=== PATIENT | female | born 1950 | race Caucasian/White ===

== ENCOUNTER → 2021-03-03 13:22 | Outpatient (CLI) | payer MEDICARE, OTHER, SELFPAY ==
--- NOTE | 2021-03-03 13:35 | XR_ITS ---
PROCEDURE: XR KNEE RT 3V CLINICAL INDICATION: Unilateral primary osteoarthritis, right knee COMPARISON: No exams were available for comparison FINDINGS: No fracture or dislocation. No lytic or blastic change. There is normal mineralization. [id number] osteoarthritic changes are present involving the right knee most prominent at the patellofemoral joint also involving the medial lateral compartment. No fracture or dislocation. No lytic or blastic change. Other findings:None. IMPRESSION: Mild to moderate osteoarthritic change Dictated by: Kenn Rodriguez MD 03/03/2021 14:21 Kenn Rodriguez MD in [place] 03/03/2021 14:21
== END ==
PROVIDERS: PCP Family Medicine; Visit Provider Family Medicine
DX: M17.11 Unilateral primary osteoarthritis, right knee (principal)
CPT/HCPCS: 73562

== ENCOUNTER → 2022-08-15 10:14 | Outpatient (CLI) | payer MEDICARE, OTHER, SELFPAY ==
[2022-08-15 12:03] LABS: Alanine Aminotransferase 39 U/L (12-78); Albumin Level 4.2 g/dl (3.5-5.0); Albumin/Globulin Ratio 1.3 (1.1-1.8); Alkaline Phosphatase 92 U/L (38-126); Anion Gap 4.9 mEq/L (5-15); Aspartate Amino Transferase 62 U/L (14-36); Bilirubin,Total 0.6 mg/dl (0.2-1.3); Blood Urea Nitrogen 18 mg/dl (7-17); Calcium 9.8 mg/dl (8.4-10.2); Carbon Dioxide 32 mmol/L (22.0-30.0); Chloride 102 mmol/L (98-107); Cholesterol 245 mg/dl (140-200); Estimated Glomerular Filt Rate 49 ml/min (>60); GFR (African American) 59 ML/MIN (>60); Globulin 3.2 g/dL (1.3-3.2); Glucose 124 mg/dl (74-100); HDL Cholesterol 62 mg/dl (40-60); Potassium 3.9 mmoL/L (3.5-5.1); Sodium 135 mmol/L (136-145); Total Protein,Serum 7.4 g/dl (6.3-8.2); Triglycerides 208 mg/dl (30-150); Uric Acid 6.1 mg/dl (2.5-6.2); VLDL Cholesterol 42 mg/dL (0-40)
[2022-08-15 12:19] LABS: 25-OH Vitamin D, Total 86.4 ng/mL (30-100)
[2022-08-15 12:34] LABS: Thyroid Stimulating Hormone 5.37 uIU/mL (0.465-4.68)
== END ==
PROVIDERS: PCP Family Medicine; Visit Provider Family Medicine
DX: E03.9 Hypothyroidism, unspecified (principal); E78.5 Hyperlipidemia, unspecified; E55.9 Vitamin D deficiency, unspecified; E79.0 Hyperuricemia without signs of inflammatory arthritis and tophaceous disease; I10 Essential (primary) hypertension
CPT/HCPCS: 36415; 80053; 80061; 82306; 84443; 84550

== ENCOUNTER 2023-06-07 12:29 | Emergency (ER) | payer MEDICARE, OTHER, SELFPAY ==
[2023-06-07 13:25] VITALS: BP 143/72; PULSE 87; RESP 20; TEMP 36.7; O2SAT 95; BMI 39.4
--- NOTE | 2023-06-07 13:45 | EXP.UTC ---
Discharge Plan Disposition Patient Disposition: Home, Self-Care Condition: Good Prescriptions Prescriptions: New Paxlovid 300 mg (150 mg x 2)-100 mg tablets,dose pack See Rx Instructions .ROUTE .COMPLEX Qty: 30 0RF Rx Instructions: take TWO 150 mg tablets of nirmatrelvir with ONE 100 mg tablet of ritonavir twice daily for 5 days benzonatate [benzonatate] 100 mg capsule 100 mg PO TIDP PRN (Reason: Cough) Qty: 30 0RF ondansetron 4 mg Tablet,Disintegrating 4 mg PO Q8H PRN (Reason: Nausea) Qty: 12 0RF No Action metoprolol succinate 25 mg tablet extended release 24 hr 25 mg PO DAILY Qty: 90 2RF ramipril 10 mg capsule 10 mg PO DAILY Qty: 90 2RF allopurinol 100 mg tablet 100 mg PO DAILY levothyroxine 25 mcg tablet 25 mcg PO DAILY Patient Comments: TAKE 1 TABLET BY MOUTH EVERY DAY FOR 90 DAYS triamterene-hydrochlorothiazid 37.5-25 mg tablet 1 tab PO DAILY raloxifene 60 mg tablet 60 mg PO DAILY metoprolol succinate 25 mg tablet extended release 24 hr 25 mg PO DAILY Patient Comments: TAKE 1 TABLET BY MOUTH EVERY DAY ramipril 10 mg capsule 10 mg PO DAILY Patient Comments: TAKE 1 CAPSULE BY MOUTH EVERY DAY Referrals Follow up/Referrals: Polo Chapin MD [Primary Care Provider] - See instructions Activity Restrictions/Add. Instructions Additional Instructions/Restrictions: Drink plenty of fluids. Take tylenol or ibuprofen for pain or fever. Take the medications as directed. Follow up with your regular doctor. GO TO THE ER FOR ANY WORSENING SYMPTOMS Clinical Impressions Clinical Impression: Acute viral syndrome, Exposure to 2019 novel coronavirus Instructions Patient Instructions: Coronavirus Disease 2019, Preventing the Spread of Coronavirus Discharge Instructions Discharge ED Provider: Wilmar Mcdonough [facility] General Stated complaint: headache,sore throat,wants Covid test Mode of Arrival: Ambulatory Source of Information: Patient Limitations: No Limitations Time Seen by Provider: 06/07/23 13:45 Description of Symptoms (Recalled from Triage Doc. by RN): PATIENT C/O CHILLS, HEADACHE AND BODY ACHES. RECENTLY EXPOSED TO COVID HEENT Symptoms (Recalled from RN notes): Yes Resp Symptoms (Recalled from RN notes): No Skin Symptoms (Recalled from RN notes): No MS Symptoms (Recalled from RN notes): No Functional Status (Recalled from RN notes): WNL History of Present Illness Provider Complaint: She states that for the past 1 day she has had malaise, body aches, chills and fever. Her currently has covid-19. Related Data Home Medications Medication Instructions Recorded Confirmed allopurinol 100 mg tablet 100 mg PO DAILY 06/07/23 06/07/23 levothyroxine 25 mcg tablet 25 mcg PO DAILY 06/07/23 06/07/23 metoprolol succinate 25 mg 25 mg PO DAILY 06/07/23 06/07/23 tablet,extended release 24 hr raloxifene 60 mg tablet 60 mg PO DAILY 06/07/23 06/07/23 ramipril 10 mg capsule 10 mg PO DAILY 06/07/23 06/07/23 triamterene 37.5 1 tab PO DAILY 06/07/23 06/07/23 mg-hydrochlorothiazide 25 mg tablet Previous Rx's Medication Instructions Recorded metoprolol succinate 25 mg 25 mg PO DAILY #90 tabs 01/12/23 tablet,extended release 24 hr ramipril 10 mg capsule 10 mg PO DAILY #90 caps 01/12/23 benzonatate 100 mg capsule 100 mg PO TIDP PRN Cough #30 caps 06/07/23 nirmatrelvir 300 mg (150 mg See Rx Instructions PO .COMPLEX 06/07/23 x2)-ritonavir 100 mg tablet,dose #30 tabs pack (Paxlovid) ondansetron 4 mg disintegrating 4 mg PO Q8H PRN Nausea #12 tabs 06/07/23 tablet Allergies Allergy/AdvReac Type Severity Reaction Status Date / Time Levofloxacin Allergy Unknown Uncoded 04/24/22 12:05 Worker's Comp Is this a Worker's Comp case?: No [facility] Disclaimer: The information contained in this section may have been updated after the patient was seen, as this information can be updated by other
[2023-06-07 13:58] VITALS: BP 143/72; PULSE 87; RESP 20; TEMP 36.7; O2SAT 95
== END 2023-06-07 14:00 | disposition home or self-care (01) ==
PROVIDERS: Emergency Provider Nurse Practitioner Family; PCP Family Medicine
DX: U07.1 COVID-19 (principal); R51.9 Headache, unspecified; R50.9 Fever, unspecified; R07.0 Pain in throat; R53.81 Other malaise; M79.18 Myalgia, other site; I10 Essential (primary) hypertension; J30.2 Other seasonal allergic rhinitis; Z87.891 Personal history of nicotine dependence
CPT/HCPCS: 87635; 99204; 99212; G0463

== ENCOUNTER 2023-08-24 13:24 | Outpatient (CLI) | payer MEDICARE, OTHER, SELFPAY ==
[2023-08-24 14:47] LABS: Alanine Aminotransferase 36 U/L (12-78); Albumin Level 4.3 g/dl (3.5-5.0); Albumin/Globulin Ratio 1.4 (1.1-1.8); Alkaline Phosphatase 83 U/L (38-126); Aspartate Amino Transferase 53 U/L (14-36); Bilirubin,Total 0.5 mg/dl (0.2-1.3); Blood Urea Nitrogen 28 mg/dl (7-17); Calcium 10.1 mg/dl (8.4-10.2); Carbon Dioxide 27 mmol/L (22.0-30.0); Chloride 101 mmol/L (98-107); Chol/HDL Ratio 4.1 (1-3.5); Cholesterol 252 mg/dl (140-200); Estimated Glomerular Filt Rate 49 ml/min (>60); GFR (African American) 59 ML/MIN (>60); Globulin 3.1 g/dL (1.3-3.2); Glucose 101 mg/dl (74-100); HDL Cholesterol 61 mg/dl (40-60); Sodium 138 mmol/L (136-145); Total Protein,Serum 7.4 g/dl (6.3-8.2); Triglycerides 206 mg/dl (30-150); VLDL Cholesterol 41 mg/dL (0-40)
[2023-08-24 15:05] LABS: Hemoglobin A1C 6.4 % (4.0-6.0)
[2023-08-24 15:18] LABS: Thyroid Stimulating Hormone 2.68 uIU/mL (0.465-4.68)
== END 2023-08-24 23:59 ==
PROVIDERS: PCP Family Medicine; Visit Provider Family Medicine
DX: E11.9 Type 2 diabetes mellitus without complications (principal); E78.5 Hyperlipidemia, unspecified; E03.9 Hypothyroidism, unspecified
CPT/HCPCS: 36415; 80053; 80061; 83036; 84443

== ENCOUNTER 2024-07-08 14:50 | Outpatient (CLI) | payer MEDICARE, OTHER, SELFPAY ==
[2024-07-08 15:43] LABS: Basophils # 0.1 K/mm3 (0-0.2); Basophils % 0.5 % (0.1-2.0); Eosinophils # 0.3 K/mm3 (0.0-0.4); Eosinophils % 2.5 % (0.1-12.0); Hematocrit 40.7 % (37.0-47.0); Lymphocytes # 4.7 K/mm3 (0.7-4.5); Lymphocytes % 42.3 % (10-50); Mean Corpuscular HGB Conc 31.9 g/dL (31.8-35.4); Mean Corpuscular Hemoglobin 29.9 pg (27.0-31.2); Mean Corpuscular Volume 93.6 fl (81-99); Mean Platelet Volume 10.2 fl (7.4-10.4); Monocytes # 0.7 K/mm3 (0.1-1.0); Monocytes % 6.1 % (1.7-9.3); Neutrophils # 5.3 K/mm3 (1.8-7.8); Neutrophils % 48.1 % (37.0-80.0); Platelet Count 258 K/mm3 (142-424); Red Blood Count 4.35 M/mm3 (4.20-5.40); Red Cell Distribution Width 12.5 % (11.5-17.5)
[2024-07-08 16:07] LABS: Alanine Aminotransferase 24 U/L (12-78); Albumin Level 4.1 g/dl (3.5-5.0); Albumin/Globulin Ratio 1.4 (1.1-1.8); Alkaline Phosphatase 95 U/L (38-126); Anion Gap 12.3 mEq/L (5-15); Aspartate Amino Transferase 35 U/L (14-36); Bilirubin,Total 0.2 mg/dl (0.2-1.3); Blood Urea Nitrogen 22 mg/dl (7-17); Calcium 10.2 mg/dl (8.4-10.2); Carbon Dioxide 29 mmol/L (22.0-30.0); Chloride 104 mmol/L (98-107); Creatine Kinase 41 U/L (30-135); Estimated Glomerular Filt Rate 54 ml/min (>60); GFR (African American) 66 ML/MIN (>60); Globulin 2.9 g/dL (1.3-3.2); Glucose 90 mg/dl (74-100); Potassium 4.3 mmoL/L (3.5-5.1); Sodium 141 mmol/L (136-145)
[2024-07-08 16:41] LABS: Ferritin 123 ng/ml (11.1-264)
[2024-07-08 17:13] LABS: Vitamin B12 582 pg/mL (239-931)
[2024-07-08 17:32] LABS: Folate > 20.00 ng/mL
[2024-07-09 14:16] LABS: Albumin 3.4 g/dL (2.9-4.4); Aldolase 4.4 U/L (3.3-10.3); Alpha-1-Globulin 0.3 g/dL (0.0-0.4); Alpha-2-Globulin 0.9 g/dL (0.4-1.0); Gamma Globulin 1.3 g/dL (0.4-1.8); Protein, Total 7.2 g/dL (6.0-8.5)
[2024-07-09 15:17] LABS: Antinuclear Antibodies (ANA) Negative (Negative)
[2024-07-10 09:42] LABS: PDF SCANNED IMAGE
== END 2024-07-08 23:59 | disposition home or self-care (01) ==
LOC: LAB 14:52
PROVIDERS: PCP Family Medicine; Visit Provider Specialist
DX: E83.10 Disorder of iron metabolism, unspecified (principal); R53.1 Weakness; E78.5 Hyperlipidemia, unspecified; I10 Essential (primary) hypertension; E79.0 Hyperuricemia without signs of inflammatory arthritis and tophaceous disease; R20.0 Anesthesia of skin; R20.2 Paresthesia of skin
CPT/HCPCS: 36415; 80053; 82085; 82550; 82607; 82728; 82746; 84155; 84165; 85025; 86038; 86334

== ENCOUNTER 2024-11-19 13:34 | Outpatient (CLI) | payer MEDICARE, OTHER, SELFPAY ==
--- NOTE | 2024-11-19 | CA_ITS ---
APPROVED REPORT EXAM: Comprehensive 2D, Doppler, and color-flow Echocardiogram Shuttle Bus Driver: Yanci Montalvo RT(R) Ht: 5 ft 4 in Wt: 225lbs BSA: 2.06 BP: 136/78 mmHg Indications: aortic murmur 2D Dimensions LA Volume 16.80 mL LA Volume Index 8.16 mL/m2 (M/F) 16-34 EF AP4 56.70 % GL Strain -19.5 % M-Mode Dimensions RVDd 2.88 cm (0.9-2.6) LA Diam 2.59 cm (1.9-4.0) LVDd 3.94 cm (3.5-5.7) LVDs 2.95 cm (3.5-5.7) IVSd 1.02 cm (0.6-1.1) PWd 1.02 cm (0.6-1.1) EF (Teich) 50.20% FS 25.10% EDV (Teich) 67.50 mL ESV (Teich) 33.60 mL LV Diastology E Decel Time 177 (160-240 msec) E/A Ratio 0.8 Aortic Valve DONTE Index 0.51 cm2/m2 AoV Peak Louie. 254.0 (50-130 cm/s) AO Peak GR. 25.90 mmHg AO Mean GR. 12.80 (<5 mmHg) AO VTI 56.8 (18-25 cm) DONTE (VTI) 1.07 (2.5-4.5 cm2) Mitral Valve MV E Max Louie. 74.0 (40-130 cm/s) MV A Velocity 93.0 (40-130 cm/s) E/A Ratio 0.79 MV PHT 52.0 ms Left Ventricle The left ventricle is normal size. The left ventricular systolic function is normal. The left ventricular ejection fraction is within the normal range. There is increased LV wall thickness. There is normal LV segmental wall motion. Transmitral Doppler flow pattern suggests impaired LV relaxation. LVEF is 55%. Right Ventricle Right ventricle is mildly dilated. The right ventricular systolic function is normal. Atria The left atrium size is normal. The right atrium size is normal. There is no Doppler evidence of interatrial shunt. Aortic Valve The aortic valve is mildly thickened. Mild to moderate aortic stenosis is present. DONTE by continuity equation is 1.5 cm???. Peak velocity is 2.5 m/s. Mean AV gradient 13 mmHg. Max AV gradient is 26 mmHg. Trace aortic regurgitation. Mitral Valve The mitral valve is normal in structure. No evidence of mitral valve stenosis. Mild mitral regurgitation. Tricuspid Valve Tricuspid valve is grossly normal in structure and function. Trace tricuspid regurgitation. There is insufficient TR jet to estimate RVSP. Pulmonic Valve The pulmonary valve is normal in structure. Trace pulmonic regurgitation. Great Vessels The aortic root is normal in size. IVC is normal in size and collapses >50% with inspiration. Pericardium There is no pericardial effusion. Other Information Study Quality: Fair Conclusion Normal biventricular systolic function. Mild RV dilation. Mild to moderate (DONTE by continuity equation is 1.5 cm???. Peak velocity is 2.5 m/s. Mean AV gradient 13 mmHg. Max AV gradient is 26 mmHg). Mild MR. Electronically signed by : Becky Berry MD 11/27/2024 12:36:36
--- OUTSIDE RECORDS SUMMARY | 2024-11-19 13:37 | XMS_ITS ---
Author Organization Unknown TREATMENT PLAN [facility] Start Date Provider Encounter for Check-up [phone] [facility]
== END 2024-11-19 23:59 | disposition home or self-care (01) ==
LOC: RT 13:35
PROVIDERS: PCP Family Medicine; Visit Provider Family Medicine
DX: I08.0 Rheumatic disorders of both mitral and aortic valves (principal)
CPT/HCPCS: 93306

== ENCOUNTER 2025-01-02 12:45 | Outpatient (CLI) | payer MEDICARE, OTHER, SELFPAY ==
--- OUTSIDE RECORDS SUMMARY | 2024-02-28 11:00 | XMS_ITS ---
Author [facility] Address [facility] [address] [id number] Care Team Providers Care Railroad Car Repairman Name Role Phone Ginny Forrest Primary Care Provider [phone] Kingsley Chapin Unavailable [phone] Allergies Allergen (clinical drug ingredient) Drug/Non Drug [...] 1 Rectal bleeding (K62 .5) Referral [facility] Referring Provider First Name Kingsley Manning Referring Provider Last Name Dari Referring Provider Speciality Family [facility] ctice Referred Provider Gastroenterology, . Referred Provider Specialty Gastroentero logy General Notes Kingsley Chapin 02/16 10:32:27 AM > she has an appointment with Dr. Wilson on 05/06/2024 but needs to be seen sooner. Please check with Dr. Jamison in [place] or GI with [facility] in [facility] for sooner apptChichi Brynn 02/29/2024 11:13:57 AM > spoke with legal secretary receptionist at Dr. Jamison's office; they can [...] W/U Status Risk Notes Problem Seasonal allergy (711855958) Seasonal allergies (J30.2) Active confirmed Vital Signs Blood pressure systolic 124 mm Hg 02/28/20 24 Blood pressure diastolic 70 mm Hg 024 Heart Rate 99 /min 02/28/2024 Height 63 in 02/28/2024 Weight 233.8 lbs 02/28/2024 BMI 41.41 kg/m2 02/28/2024 Encounters Encounter Location Date Provider Diagnosis [facility] [address] [facility] [address] [place] [id number] 02/28/2024 Kingsley Chapin Diverticulitis K57.9 2 ; [...] Name:Kingsley Ryder, 01/20/2025 01:45:00 PM, [address] [facility] [address] [facility], [address], [place], [id number], Progress Notes * KELLY PLASCENCIADOB: 0 (74 yo F)Acc No.[id number]:02/28/2024 Progress Notes Patient: KELLY VALDOVINOS Provider: Kingsley Chapin M.D. :1950 A ge:73 Y S ex:Female Date:02/28/2024 Address:[address] [place], [place] [phone] Pcp:Ginny Forrest Subjective: * Chief Complaints: * [...] * Images: Billing Information: * Visit Code: 31201 Office Visit, Est Pt., Level 3. * Procedure Codes: 38207 PULSE OX. * Electronic signature of Kingsley Chapin MD on 01/02/2025 at 12:49 PM EDT Sign off status: Pending * Provider: Kingsley Chapin M.D. Date: 0 02/28/2024 Generated for Humera weinberg/Rebeka/Doreensmitting on: 0 01/02/2025 12:49 PM EDT Consultation Request Notes Referral Date Referring Provider Referred Provider Not es 02/29/2024 Kingsley Chapin Gastroenterology, . Rec tala bleeding and diverticulitis
--- OUTSIDE RECORDS SUMMARY | 2024-11-06 07:45 | XMS_ITS ---
Author Organization [facility] Address [address] [facility] [address] [phone] Care Team Providers Care Gas Turbine Powerplant Mechanic Helper Name Role Phone Ginny Forrest Primary Care Provider Kingsley Chapin [phone] Allergies Allergen (clinical drug ingredient) Drug/Non Drug [...] 57 Performing Lab: Notes/Report: Test performed by [employer], [employer] [facility] , [address], [place] [address] Dusty Degroot MD, Meat Hostess CLIA: [id number] Sodium 142 135-145 mmol/L Potassium 4.3 3.5-5.3 [...] Interpretation:Normal Performing Lab: Notes/Report: Test performed by [facility] [address] [place] [address] , [place] [address] Dusty Degroot MD, Meat Hostess CLIA: [id number] TSH 1.89 0.43-5.25 mU/L P-Uric Acid Reviewed date:11/13/2024 10:08:29 PM Interpretation:7.9 Performing Lab: Notes/Report: Test performed by [facility] [address] [place] [address] , [place] [address] Dusty Degroot MD, Meat Hostess CLIA: [id number] Uric Acid 7.9 2.4-7.0 mg/dL Echocardiogram Reviewed [...] Status Risk Notes Problem Aortic valve disorder (4147993) Heart murmur, aortic (I35.9) Active confirmed Problem Obese class II (7200751367470 05) BMI 39.0-39.9,ad ult (Z68.39) Active confirmed Vital Signs Blood pressure systolic 127 mm Hg 11/07/19 25 Blood pressure diastolic 70 mm Hg 025 Heart Rate 94 /min 11/06/2024 Height 63 in 11/06/2024 Weight 225.6 lbs 11/06/2024 BMI 39.96 kg/m2 11/06/2024 Encounters Encounter Location Date Provider Diagnosis [facility] [address] [facility] [address] [place], [place] [phone] 11/06/2024 R Nigel Chapin Heart murmur, aortic [...] phone to repo rt test results, Reason: Provider Name:Kingsley Ryder, 01/20/2025 01:45:00 PM, [address] [facility] [address] [facility], [address] , [place], [place], [id number], Progress Notes * KELLY PLASCENCIADOB: 0 (74 yo F)Acc No.[id number]:11/06/2024 Progress Notes Patient: KELLY VALDOVINOS Provider: Kingsley Chapin M.D. :1950 A ge:73 Y S ex:Female Date:11/06/2024 Address:[address] [place], [place] [phone] Pcp:Ginny Forrest Subjective: * Chief Complaints: * [...] yslipidemia - E78.5 ? 7 . B ND 39.0-39.9,adult - Z68.39 Plan: * Treatment: Value [...] PM > no auth required; CPT code 89719; faxed to [facility] Kingsley Thomas 11/30/2024 10:29:43 PM EDT [...] G 2211 Complex e/[place], [address] GLYCATED HEMOGLOBIN TEST, Modifiers: QW , 3044F HG A1C LEVEL LT 7.0%, G8752 MOST RECENT SYSTOLIC BP < 140MM HG, G8754 MOST RECENT DIASTOLIC BP < 90MM HG * Follow Up: v ia phone to report test results * Images: Billing Information: * Visit Code: 19119 Office Visit, Est Pt., Level 4. * Procedure Codes: G2211 Complex e/[place]. [address] GLYCATED HEMOGLOBIN TEST. Modifiers: QW 3044F HG A1C LEVEL LT 7.0%. G8752 MOST RECENT SYSTOLIC BP < 140MM HG. G8754 MOST RECENT DIASTOLIC BP < 90MM HG. * Electronic signature of Kingsley Chapin MD on 01/02/2025 at 12:49 PM EDT Sign off status: Pending * Provider: Kingsley Chapin M.D. Date: 0 11/06/2024 Generated for Humera weinberg/Rebeka/Alexsandraitting on: 0 01/02/2025 12:49 PM EDT History and Physical Notes * [...]
--- OUTSIDE RECORDS SUMMARY | 2024-12-23 09:30 | XMS_ITS ---
Author Organization [facility] Address [address] [id number] Care Team Providers Care Marketing Business Analyst Name Role Phone Ginny Forrest Primary Care Provider Kingsley Chapin [phone] Allergies Allergen (clinical drug ingredient) Drug/Non Drug [...] 12/23/2024 Encounters Encounter Location Date Provider Diagnosis [facility] 1210 [facility] 36 [facility] [address] [place], [place] [id number] 12/23/2024 Kingsley Chapin Leg edema R60.0 ; [...] Appt Details Follow Up: 4 Weeks, Reason: Provider Name:Kingsley Ryder, 01/20/2025 01:45:00 PM, 1210 [facility] 36 [facility], [address], [place], [id number], Progress Notes * TEMO KELLY BECKERDOB: 0 (74 yo F)Acc No.[id number]:12/23/2024 Progress Notes Patient: KELLY VALDOVINOS Provider: Kingsley Chapin M.D. :1950 A ge:74 Y S ex:Female Date:12/23/2024 Address:[address] [place], [place] [id number] Pcp:Ginny Forrest Subjective: * Chief Complaints: * [...] . * Hospitalization/Major Diagno stic Procedure: P WALLYIA 2000, SAME ABOVE . * Family History: [...] Temp: 98.8, BP: 130/80, HR: 85, Nurse: pe, Ht: 63, BMI:40.56. * Examination: C ardiology: [...] * Images: Billing Information: * Visit Code: 67225 Office Visit, Est Pt., Level 3. * Procedure Codes: G2211 Complex e/m visit add on. 1036F TOBACCO NON-USER. G8783 BP SCR PRFRM RCMDD DEFIND SCR INTVL. G8752 MOST RECENT SYSTOLIC BP < 140MM HG. G8754 MOST RECENT DIASTOLIC BP < 90MM HG. * Electronic signature of Kingsley Chapin MD on 01/02/2025 at 12:50 PM EDT Sign off status: Pending * Provider: Kingsley Chapin M.D. Date: 12/23/2024 Generated for Humera weinberg/Rebeka/Alexsandraitting on: 01/02/2025 12:50 PM EDT History and Physical Notes * Examination Category Sub-Category Detail Notes Category Not es Cardiology Lungs: clear, no rales or wheezes Heart sounds: RRR, normal S1, S2 Extremities: 3+ PTE bilaterally Murmur, click , gallop: Grade, 2/6, syst olic murmur RUSB General Appearance: pleasant, NAD
--- NOTE | 2025-01-02 12:49 | XR_ITS ---
FINAL REPORT CLINICAL HISTORY: foot pain and swelling PT STATED PAIN AND SWELLING TO DORSAL SURFACE OF FOOT FINDINGS: Three views show no evidence of acute displaced fracture or dislocation of the visualized bony architecture. There are mild degenerative changes of the midfoot and first metatarsophalangeal joint. Minimal hallux valgus deformity is identified. There is moderate calcaneal spurring. IMPRESSION: Chronic changes as above. Reviewed, Interpreted and Dictated by Dorina Reina MD Transcribed by Yesenia Ashley Authenticated and . [facility]
--- NOTE | 2025-01-02 12:49 | XR_ITS ---
FINAL REPORT CLINICAL HISTORY: foot pain and swelling PT STATED PAIN AND SWELLING TO DORSAL SURFACE OF FOOT FINDINGS: Three views show no evidence of acute displaced fracture or dislocation of the visualized bony architecture. There are mild degenerative changes of the midfoot and first metatarsophalangeal joint. Minimal hallux valgus deformity is identified. There is mild calcaneal spurring. IMPRESSION: Chronic changes as above. Reviewed, Interpreted and Dictated by Dorina Reina MD Transcribed by Yesenia Ashley Authenticated and [facility]
--- OUTSIDE RECORDS SUMMARY | 2025-01-02 12:50 | XMS_ITS | Patient Health Record ---
Author Organization [facility] Address 1210 [facility] [address] [id number] Care Team Providers Care Transportation Economics Teacher Name Role Phone Ginny Forrest Primary Care Provider Kingsley Chapin [phone] Allergies Allergen (clinical drug ingredient) Drug/Non Drug [...] 57 Performing Lab: Notes/Report: Test performed by [facility], [facility]0 [facility] , [address], [place] [address] Dusty Degroot MD, Spark Plug Tester CLIA: [id number] Sodium 142 135-145 mmol/L Potassium 4.3 3.5-5.3 [...] Interpretation:Normal Performing Lab: Notes/Report: Test performed by [facility] [address] [place] [address] , [facility] [address], [place] [address] Dusty Degroot MD, Spark Plug Tester CLIA: [id number] TSH 1.89 0.43-5.25 mU/L P-Uric Acid Reviewed date:11/13/2024 10:08:29 PM Interpretation:7.9 Performing Lab: Notes/Report: Test performed by [facility] [address] [place] [address] , [address], [place] [address] Dusty Degroot MD, Spark Plug Tester CLIA: [id number] Uric Acid 7.9 2.4-7.0 mg/dL Echocardiogram Reviewed date:11/30/2024 10:29:51 PM Interpretation: Performing Lab: Notes/Report: Covid test (in house) Reviewed date:02/14/2024 03:36:54 PM Interpretation:Negative Performing Lab: Notes/Report: Negative Result: negative colonoscopy Reviewed date:03/20/2024 12:44:15 PM Interpretation:DR RUSSELL--ALSO EDG Performing Lab: Notes/Report: DR RUSSELL--ALSO EDG Medications Medication SIG (Take, Route, Frequency, Duration) Notes Start Date End Date Status metOLazone 5 MG 1 tablet Orally christos y; Duration: 30 days 12/23/2024 Active Levothyroxine Sodium 25 MCG TAKE 1 TABLE T BY MOUTH EVERY DAY FOR 90 DAYS; Duration: 90 Active Allopurinol 100 MG TAKE 1 TABLET BY FEDERICO TH EVERY DAY FOR 30 DAYS; Duration: 90 Active Raloxifene HCl 60 MG TAKE 1 TABLET BY MO UTH EVERY DAY FOR 30 DAYS; Duration: 90 Active Fluticasone Propionate 50 MCG/ACT 1 spray(s) intranasally once a day 03/03/2019 Active Loratadine 10 MG 1 tab(s) orally once a day 10/30/2019 Active Librax 5-2.5 MG 1 capsule orally fou r times a day; Duration: 90 days Active Ramipril 10 MG TAKE 1 CAPSULE BY [facility] EVERY DAY; Duration: 90 Active Triamterene-HCTZ 37.5-25 MG TAKE 1 TABLE T BY MOUTH EVERY DAY FOR 30 DAYS; Duration: 90 Active Centrum Women - as directed Orally Active Metoprolol Succinate ER 25 MG TAKE 1 TABLET BY MOUTH EVERY DAY FOR 30 DAYS; Duration: 90 Active Immunizations Vaccine Route Administration Date Status Comme nts COVID 19 Moderna Unknown 10/12/2020 Administered COVID 19 Moderna Unknown 11/09/2020 Administered COVID 19 Moderna Unknown 05/20/2021 Administered Tetanus Tdap-Adacel (over 7yrs) IM Intramuscular 03/19/2007 Administered Problems Problem Type SNOMED Code ICD Code Onset Dates Problem Status W/U Status Risk Notes Problem Degeneration of cervical intervertebral disc (00576017) CERVICAL DISC DEGEN (722.4) Active confirmed Problem Type 2 diabetes mellitus (16825443) Type 2 diabetes mellitus (E11.9) Active confirmed Problem Hypothyroid (68487080) Hypothyroid (E03.9) Active confirmed Problem Vitamin D deficiency (09354641) Vitamin D deficiency (E55.9) Active confirmed Problem Gout (52348275) Gout (M10.9) Active confirmed Problem Essential hypertension (00463659) Essential hypertension (I10) Active confirmed Problem Diverticulitis (17289222) Diverticulitis (K57.92) Active confirmed Problem Seasonal allergy (533204172) Seasonal allergies (J30.2) Active confirmed Problem Cervicalgia (94100996) Cervicalgia (M54.2) Active confirmed Problem Peripheral neuropathy (447707045) Peripheral neuropathy (G62.9) Active confirmed Problem Chronic pain syndrome (879373104) Chronic pain syndrome (G89.4) Active confirmed Problem Depression (167022090) Depression (F32.9) Active confirmed Problem Gastroesophageal reflux disease (931242444) Gastroesophageal reflux disease, esophagitis presence not specified (K21.9) Active confirmed Problem Aortic valve disorder (5233806) Heart murmur, aortic (I35.9) Active confirmed Problem Osteoarthritis of knee (765943431) Primary osteoarthritis of right knee (M17.11) Active confirmed Problem Podagra (94845110) Podagra (M10.9) Active confi rmed Problem Dyslipidemia (569867124) Dyslipidemia (E78.5) Active confirmed Problem Obese class II (120637212026505) BMI 39.0-39.9,adult (Z68.39) Active confirmed Problem Allergic rhinitis (95034155) Allergic rhinitis, unspecified allergic rhinitis trigger, unspecified rhinitis seasonality (J30.9) Active confirmed Problem Atopic dermatitis (19773573) Intrinsic eczema (L20.84) Active confirmed Problem Irritable bowel syndrome (44259517) Irritable bowel syndrome, unspecified type (K58.9) Active confirmed Problem Osteopenia (519668540) Osteopenia, unspecified location (M85.80) Active confirmed Problem Allergic rhinitis (41923060) Allergic rhinitis, unspecified seasonality, unspecified trigger (J30.9) Active confirmed Vital Signs Heart Rate 85 /min 12/23/2024 Blood pressure diastolic 80 mm Hg 12/23/2024 Height 63 in 12/23/2024 Blood pressure systolic 130 mm Hg 12/23/2024 Weight 229 lbs 12/23/2024 BMI 40.56 kg/m2 12/23/2024 Encounters Encounter Location Date Provider [facility] [address] [place] [id number] 02/14/2024 R Nigel Dari URI (upper respirato ry infection) J06.9 [facility] 121 [facility] [address] [place] [id number] 02/19/2024 R Nigel Dari Diverticulitis K57.9 2 ; Peripheral neuropathy G62.9 and Colon cancer screening Z12.11 [facility] 121 [facility] [address] [place] [id number] 02/28/2024 R Nigel Dari Diverticulitis K57.9 2 ; Rectal bleeding K62.5 and Seasonal allergies J30.2 [facility] 12[facility] [address] [place], [place] [id number] 11/06/2024 R Nigel Emmanuelfleet Heart murmur, aortic I35.9 ; Hypothyroid E03.9 ; Hyperuricemia E79.0 ; Type 2 diabetes mellitus E11.9 ; Xerosis cutis L85.3 ; Dyslipidemia E78.5 and BMI 39.0-39.9,adult Z68.39 [facility] [address] [place], [place] [id number] 12/23/2024 R Nigel Dari Leg edema R60.0 ; Xerosis cutis L85.3 and Foot pain M79.673 [facility] [address] [place], [place] [id number] 02/13/2024 Ginny Forrest [facility] [address] [place], [place] [id number] 02/20/2024 R Nigel Dari [facility] [address] [place], [place] [id number] 02/21/2024 Ginny Forrest Diverticulitis K57.9 2 [facility] [address] [place], [place] [id number] 04/29/2024 Ginny Forrest [facility] [address] [place], [place] [id number] 11/05/2024 R Nigel Dari [facility] [address] [place], [place] [id number] 11/13/2024 Ginny Forrest [facility] [address] [place], [place] [id number] 11/25/2024 Ginny Forrest [facility] [address] [place], [place] [id number] 11/30/2024 R Nigel Dari Assessments Encounter Date Diagnosis (ICD Code) Assessment Notes Treatment Notes Treatment Clinical Notes Section Notes 02/14/2024 URI (upper respiratory infection) (ICD-10 - J06.9) 02/19/2024 Diverticulitis (ICD-10 - K57.92) 02/19/2024 Peripheral neuropathy (ICD-10 - G62.9) 02/21/2024 Diverticulitis (ICD-10 - K57.92) 02/28/2024 Diverticulitis (ICD-10 - K57.92) 02/28/2024 Rectal bleeding (ICD-10 - K62.5) 11/06/2024 Hypothyroid (ICD-10 - E03.9) 11/06/2024 Heart murmur, aortic (ICD-10 - I35.9) 12/23/2024 Leg edema (ICD-10 - R60.0) 12/23/2024 Xerosis cutis (ICD-10 - L85.3) Moisturizing lotions to feet 12/23/2024 Foot pain (ICD-10 - M79.673) - - probably component of plantar fasciitis Keep appointment with podiatry in 2 weeks 11/06/2024 Hyperuricemia (ICD-10 - E79.0) 02/28/2024 Seasonal allergies (ICD-10 - J30.2) Resume Claritin and Flonase she has at home 02/19/2024 Colon cancer screening (ICD-10 - Z12.11) 11/06/2024 Type 2 diabetes mellitus (ICD-10 - E11.9) 11/06/2024 Xerosis cutis (ICD-10 - L85.3) Moisturizing lotions to feet 11/06/2024 Dyslipidemia (ICD-10 - E78.5) 11/06/2024 BMI 39.0-39.9,adult (ICD-10 - Z68.39) Plan Of Treatment Next Appt Details Provider Name:Kingsley Ryder, 01/20/2025 01:45:00 PM, [address], [address], [place], [place], [id number], Insurance Providers Payer Name Payer Address Payer Phone Subscriber Number Group Number Insured Name Patient Relationship to Insured Coverage Start Date Coverage End Date MEDICARE PART B [place] [address] [place] [phone] [id number] KELLY PLASCENCIA Self - patient is the insured [address] [address] [phone] [id number] PL[address] Marina HURST Spouse - patient is the spouse of the insured Medications Administered Medication Instructions Date of Administration Dosage Notes Depo- Medrol 40 mg/ml 03/06/2009 1.5 mL Depo- Medrol 40 mg/ml 11/03/2011 1.5 mL Depo- Medrol 40 mg/ml 01/16/2014 1.5 mL Depo- Medrol 40 mg/ml 12/01/2019 1.5 mL Dexamethasone 02/12/2012 1.0 mL Dexamethasone 06/17/2012 1.0 mL Dexamethasone 06/08/2014 1 mL Dexamethasone 07/21/2014 1 mL Dexamethasone 01/04/2015 1 mL Dexamethasone 04/28/2015 1 mL Dexamethasone 06/21/2017 1 mL Dexamethasone 07/01/2018 1 mL Dexamethasone 08/30/2018 1 mL Dexamethasone 03/03/2019 1 mL Dexamethasone 06/16/2019 1 mL Dexamethasone 02/14/2024 1 mL Medical (General) History Medical History History ICD Code hypertension diverticulosis Hiatal hernia gastritis colitis s/p arthur osteoporosis c-spine degenerative changes thoracic outlet sydrome Idiopathic polyneuropathy per EMG/NCV - Dr. Lewis (06/2024) Aortic stenosis (mild- mod) by echo 11/04 24 Surgical History Surgery Date(Month/Year) tonsillectomy adnoidectomy cholecystectomy Hospitalization History Reason Date(Month/Year) SAME ABOVE PNEUMONIA 2000
--- OUTSIDE RECORDS SUMMARY | 2025-01-02 12:50 | XMS_ITS | Clinical Summary ---
Author Organization [facility] Address [address] [facility] [place] [address] Phone Care Team Providers Care Money Order Clerk Name Role Phone Unavailable Primary Care Provider Unavailabl e Allergies Active Allergy Reactions Criticality Noted Date Comments Amoxicillin-Pot Clavulanate Nausea And Vomiting 03/06/2024 Per pt report Levofloxacin Nausea And Vomiting 03/06/2024 Per pt report Medications ramipriL (ALTACE) 1.25 mg Oral CapsuleIndicatio ns:Acute pain of right knee Take 1.25 mg by mouth daily. Active metoprolol succinate ER (TOPROL-XL) 100 mg Oral Tablet Sustained Release 24 hrIndications:Ac estrella pain of right knee Take 100 mg by mouth daily. Active raloxifene (EVISTA) 60 mg Oral TabletIndication s:Acute pain of right knee Take 60 mg by mouth daily. Active Active Problems Problem Noted Date Diagnosed Date Left lower quadrant abdominal pain 04/30/2024 Weakness 04/30/2024 Hypothyroid 04/30/2024 Gout 04/30/2024 Hypertension 04/30/2024 Surgical History Surgery Date Site/Laterality Comments CHOLECYSTECTOMY TONSILLECTOMY Medical History Medical History Date Comments Heartburn Gout Colitis Arthritis Family History Medical History Relation Name Comments Arthritis Brother Heart Disease Brother Cancer Father Heart Disease Maternal Grandmother Cancer Mother High Blood Pressure Mother Relation Name Status Comments Brother Father Maternal Grandmother Mother Social History Tobacco Use Types Packs/Day Years Used Date Smoking Tobacco: Former Smokeless Tobacco: Never Alcohol Use Standard Drinks/Week Comments Never 0 (1 standard drink = 0.6 oz pur e alcohol) [facility] Utilities Answer Date Recorded In the past 12 months has th e electric, gas, oil, or water company threatened to shut off services in your home? No 04/30/2024 Overall Financial Resource Strain (CARDIA) Answe r Date Recorded How hard is it for you to pa y for the very basics like food, housing, medical care, and heating? Not very hard 04/30/2024 PHQ-2 Answer Date Recorded PHQ-2 Total Score 1 04/30/2024 [facility] [place] [facility] Occupat ional Health - Occupational Stress Questionnaire Answer Date Recorded Do you feel stress - tense, restless, nervous, or anxious, or unable to sleep at night because your mind is troubled all the time - these days? Only a little 04/30/2024 Exercise Vital Sign Answer Date Recorde d On average, how many days pe r week do you engage in moderate to strenuous exercise (like a brisk walk)? 0 days 04/30/2024 On average, how many minutes do you engage in exercise at this level? 0 min 04/30/2024 Hunger Vital Sign Answer Date Recorded Within the past 12 months, y ou worried that your food would run out before you got the money to buy more. Never true 04/30/20 24 Within the past 12 months, t he food you bought just didn't last and you didn't have money to get more. Never true 04/30/2024 [facility] IP Transportation Answer D ate Recorded In the past 12 months, has l ack of reliable transportation kept you from medical appointments, meetings, work or from getting things needed for daily living? No 04/30/2024 Comments No Sex and Gender Information Value Date Recorded Sex Assigned at Not on file Legal Sex Female 5:44 PM EDT Gender Identity Not on file Sexual Orientation Not on file Obstetrics History Last Filed Vital Signs Vital Sign Reading Time Taken Comments Blood Pressure 132/74 05/01/2024 8:43 AM EST Pulse 80 05/01/2024 8:43 AM EST Temperature 36.6 C (97.9 F) 05/01/2024 8:43 AM EST Respiratory Rate 18 05/01/2024 8:43 AM EST Oxygen Saturation 96% 05/01/2024 8:43 AM EST Inhaled Oxygen Concentration - - Weight 100.8 kg (222 lb 3.6 oz) 05/01/2024 4:00 AM EST Height 162.6 cm (5' 4 ) 04/30/2024 6:40 PM EST Body Mass Index 38.14 04/30/2024 6:40 PM EST Plan of Treatment Health Maintenance Due Date Last Done Comments Wellness Exam Medicare 1953 Hepatitis C Screening 12/10/1967 Cologuard 1994 Colon Cancer Screening 1994 Colonoscopy 1994 FIT 1994 Sigmoidoscopy 1994 Virtual Colonography 1994 DTaP/TDaP/Td (1 - Tdap) 10/24/1996 10/23/1996 Pneumococcal Vaccine 50+ (1 of 1 - PCV) 12/10/1999 Zoster (1 of 2) 12/10/1999 Bone Density Screening 2014 COVID-19 Vaccine (4 - 2023-2 5 season) 2024 05/20/2021, 11/09/2020, 10/12/2020 RSV or 60+ (1 - 1-dose 75+ series) 2024 Influenza Vaccine (#1) 2025 Hepatitis B Vaccine Aged Out No longe r eligible based on patient's age to complete this topic Meningococcal B Vaccine Aged Out No l onger eligible based on patient's age to complete this topic Insurance MEDICARE [place] PART A AND B Easy Bill Online MEDICARE [place] PART A AND B Easy Bill Online [facility] [employer] INSURANCE [employer] MEDICARE [place] PART A AND B Easy Bill Online Advance Directives For more information, please contact: [phone] * DNR (Latest Code Status on File) Date Activated Date Inactivated Comments 04/30/2024 5:30 PM 05/01/2024 5:04 PM * Full Code Date Activated Date Inactivated Comments 04/30/2024 4:35 PM 04/30/2024 5:30 PM
== END 2025-01-02 23:59 | disposition home or self-care (01) ==
LOC: RAD 12:47
PROVIDERS: PCP Family Medicine; Visit Provider Podiatrist
DX: M77.32 Calcaneal spur, left foot (principal); M77.31 Calcaneal spur, right foot; M19.072 Primary osteoarthritis, left ankle and foot; M19.071 Primary osteoarthritis, right ankle and foot; M20.12 Hallux valgus (acquired), left foot; M20.11 Hallux valgus (acquired), right foot
CPT/HCPCS: 73630

== ENCOUNTER 2025-01-09 12:52 | Outpatient (CLI) | payer MEDICARE, OTHER, SELFPAY ==
--- OUTSIDE RECORDS SUMMARY | 2024-02-28 11:00 | XMS_ITS ---
[facility] Organization [facility] Address [facility] [address] [id number] Care Team Providers Care Patient Relations Specialist Name Role Phone Ginny Forrest Primary Care Provider [phone] Kingsley Chapin Unavailable [phone] Allergies Allergen (clinical drug ingredient) Drug/Non Drug [...] 1 Rectal bleeding (K62 .5) Referral [facility] Referring Provider First Name Kingsley Manning Referring Provider Last Name Dari Referring Provider Speciality Family [facility] ctice Referred Provider Gastroenterology, . Referred Provider Specialty Gastroentero logy General Notes Kingsley Chapin 02/16 10:32:27 AM > she has an appointment with Dr. Wilson on 05/06/2024 but needs to be seen sooner. Please check with Dr. Jamison in [place] or GI with [facility] in [facility] for sooner apptChichi Brynn 02/29/2024 11:13:57 AM > spoke with audit officer at Dr. Jamison's office; they can see [...] HCl 60 MG TAKE 1 TABLET BY MO UTH EVERY DAY; Duration: 90 Active Maxzide-25 [...] W/U Status Risk Notes Problem Seasonal allergy (799409634) Seasonal allergies (J30.2) Active confirmed Vital Signs Blood pressure systolic 124 mm Hg 02/28/20 24 Blood pressure diastolic 70 mm Hg 024 Heart Rate 99 /min 02/28/2024 Height 63 in 02/28/2024 Weight 233.8 lbs 02/28/2024 BMI 41.41 kg/m2 02/28/2024 Encounters Encounter Location Date Provider Diagnosis [facility] [address] [facility] [address] [place] [id number] 02/28/2024 Kingsley Chapin Diverticulitis K57.9 2 ; [...] Next Appt Details Follow Up: prn, Reason: Provider Name:Kingsley Ryder, 01/20/2025 01:45:00 PM, [address] [facility] [address] [facility], [address], [place], [id number], Progress Notes * KELLY PLASCENCIADOB: 0 (74 yo F)Acc No.[id number]:02/28/2024 Progress Notes Patient: KELLY VALDOVINOS Provider: Kingsley Chapin M.D. :1950 A ge:73 Y S ex:Female Date:02/28/2024 Address:[address] [place], [place] [phone] Pcp:Ginny Forrest Subjective: * Chief Complaints: * 1 . [...] daily , Taking Vitamin D3 50 MCG (1999 UT) Tablet TAKE 1 TABLET BY MOUTH [...] * Images: Billing Information: * Visit Code: 06603 Office Visit, Est Pt., Level 3. * Procedure Codes: 50959 PULSE OX. * Electronic signature of Kingsley Chapin MD on 01/09/2025 at 12:54 PM EDT Sign off status: Pending * Provider: Kingsley Chapin M.D. Date: 0 02/28/2024 Generated for Humera weinberg/Rebeka/Doreensmitting on: 0 01/09/2025 12:54 PM EDT Consultation Request Notes Referral Date Referring Provider Referred Provider Not es 02/29/2024 Kingsley Chapin Gastroenterology, . Rec tala bleeding and diverticulitis
--- OUTSIDE RECORDS SUMMARY | 2024-11-06 07:45 | XMS_ITS ---
Author Organization [facility] Address [address] [facility] [address] [phone] Care Team Providers Care Muffle Operator Name Role Phone Ginny Forrest Primary Care Provider Kingsley Chapin [phone] Allergies Allergen (clinical drug ingredient) Drug/Non Drug [...] 57 Performing Lab: Notes/Report: Test performed by [facility], [employer] [facility] , [address], [place] [address] Dusty Degroot MD, Clinical Office Technician CLIA: [id number] Sodium 142 135-145 mmol/L Potassium 4.3 3.5-5.3 [...] Interpretation:Normal Performing Lab: Notes/Report: Test performed by [facility] [address] [place] [address] , [place] [address] Dusty Degroot MD, Clinical Office Technician CLIA: [id number] TSH 1.89 0.43-5.25 mU/L P-Uric Acid Reviewed date:11/13/2024 10:08:29 PM Interpretation:7.9 Performing Lab: Notes/Report: Test performed by [facility] [address] [place] [address] , [place] [address] Dusty Degroot MD, Clinical Office Technician CLIA: [id number] Uric Acid 7.9 2.4-7.0 mg/dL Echocardiogram Reviewed [...] Status Risk Notes Problem Aortic valve disorder (6206815) Heart murmur, aortic (I35.9) Active confirmed Problem Obese class II (9900987519571 05) BMI 39.0-39.9,ad ult (Z68.39) Active confirmed Vital Signs Blood pressure systolic 127 mm Hg 11/07/19 25 Blood pressure diastolic 70 mm Hg 025 Heart Rate 94 /min 11/06/2024 Height 63 in 11/06/2024 Weight 225.6 lbs 11/06/2024 BMI 39.96 kg/m2 11/06/2024 Encounters Encounter Location Date Provider Diagnosis [facility] [address] [facility] [address] [place], [place] [phone] 11/06/2024 R Nigel Chapin Heart murmur, aortic [...] Name:Kingsley Ryder, 01/20/2025 01:45:00 PM, [address] [facility] [address] [facility], [address] , [place], [place], [id number], Progress Notes * KELLY PLASCENCIADOB: 0 (74 yo F)Acc No.[id number]:11/06/2024 Progress Notes Patient: KELLY VALDOVINOS Provider: Kingsley Chapin M.D. :1950 A ge:73 Y S ex:Female Date:11/06/2024 Address:[address] [place], [place] [phone] Pcp:Ginny Forrest Subjective: * Chief Complaints: * [...] yslipidemia - E78.5 ? 7 . B OH 39.0-39.9,adult - Z68.39 Plan: * Treatment: Value [...] PM > no auth required; CPT code 72193; faxed to [facility] Kingsley Thomas 11/30/2024 10:29:43 PM EDT > [...] G 2211 Complex e/[place], [address] GLYCATED HEMOGLOBIN TEST, Modifiers: QW , 3044F HG A1C LEVEL LT 7.0%, G8752 MOST RECENT SYSTOLIC BP < 140MM HG, G8754 MOST RECENT DIASTOLIC BP < 90MM HG * Follow Up: v ia phone to report test results * Images: Billing Information: * Visit Code: 40592 Office Visit, Est Pt., Level 4. * Procedure Codes: G2211 Complex e/[place]. [address] GLYCATED HEMOGLOBIN TEST. Modifiers: QW 3044F HG A1C LEVEL LT 7.0%. G8752 MOST RECENT SYSTOLIC BP < 140MM HG. G8754 MOST RECENT DIASTOLIC BP < 90MM HG. * Electronic signature of Kingsley Chapin MD on 01/09/2025 at 12:54 PM EDT Sign off status: Pending * Provider: Kingsley Chapin M.D. Date: 0 11/06/2024 Generated for Humera weinberg/Rebeka/Alexsandraitting on: 0 01/09/2025 12:54 PM EDT History and Physical Notes * [...]
--- OUTSIDE RECORDS SUMMARY | 2024-12-23 09:30 | XMS_ITS ---
Author Organization [facility] Address [address] [phone] Care Team Providers Care Plaster Caster Name Role Phone Ginny Forrest Primary Care Provider Kingsley Chapin [phone] Allergies Allergen (clinical drug ingredient) Drug/Non Drug [...] - as directed Orally Active Vital Signs Weight 229 lbs 12/23/2024 Blood pressure systolic 130 mm Hg 12/24/19 25 Blood pressure diastolic 80 mm Hg 025 Heart Rate 85 /min 12/23/2024 Height 63 in 12/23/2024 BMI 40.56 kg/m2 12/23/2024 Encounters Encounter Location Date Provider Diagnosis [facility] [facility] 1210 [facility] 36 [facility] [address] [place], [place] [phone] 12/23/2024 Kingsley Chapin Leg edema R60.0 ; [...] Provider Name:Kingsley Ryder, 01/20/2025 01:45:00 PM, 1210 [facility] 36 [facility], [address], [place], [id number], Progress Notes * TEMO, KELLY BECKERDOB: 0 (74 yo F)Acc No.[id number]:12/23/2024 Progress Notes Patient: KELLY VALDOVINOS Provider: Kingsley Chapin M.D. :1950 A ge:74 Y S ex:Female Date:12/23/2024 Address:[address] [place], [place] [address] [place] [id number] Pcp:Ginny Forrest Subjective: * Chief Complaints: * [...] * Images: Billing Information: * Visit Code: 27009 Office Visit, Est Pt., Level 3. * Procedure Codes: G2211 Complex e/m visit add on. 1036F TOBACCO NON-USER. G8783 BP SCR PRFRM RCMDD DEFIND SCR INTVL. G8752 MOST RECENT SYSTOLIC BP < 140MM HG. G8754 MOST RECENT DIASTOLIC BP < 90MM HG. * Electronic signature of Kingsley Chapin MD on 01/09/2025 at 12:55 PM EDT Sign off status: Pending * Provider: Kingsley Chapin M.D. Date: 12/23/2024 Generated for Humera weinberg/Rebeka/Alexsandraitting on: 01/09/2025 12:55 PM EDT History and Physical Notes * Examination Category Sub-Category Detail Notes Category Not es Cardiology Lungs: clear, no rales or wheezes Heart sounds: RRR, normal S1, S2 Extremities: 3+ PTE bilaterally Murmur, click , gallop: Grade, 2/6, syst olic murmur RUSB General Appearance: pleasant, NAD
--- OUTSIDE RECORDS SUMMARY | 2025-01-09 12:55 | XMS_ITS | Clinical Summary ---
Author Organization [facility] Address [address] [facility] [facility] [place] [address] Phone Care Team Providers Care Authors Motivational Name Role Phone Unavailable Primary Care Provider [...] drink = 0.6 oz pur e alcohol) [facility] Utilities Answer Date Recorded In the past [...] Date Recorded PHQ-2 Total Score 1 04/30/2024 [facility] Occupat ional [facility] - Occupational Stress [...] money to get more. Never true 04/30/2024 [facility] [address] IP Transportation Answer D ate Recorded In [...] Insurance [place]ICARE [place] PART A [place] B [employer] MEDICARE [place] PART A AND B ReferralMD [facility] [employer] INSURANCE [employer] MEDICARE [place] PART A AND B [employer] Advance Directives For more information, please contact: [phone] * DNR (Latest Code Status on File) Date Activated Date Inactivated Comments 04/30/2024 5:30 PM 05/01/2024 5:04 PM * Full Code Date Activated Date Inactivated Comments 04/30/2024 4:35 PM 04/30/2024 5:30 PM
--- OUTSIDE RECORDS SUMMARY | 2025-01-09 12:55 | XMS_ITS | Patient Health Record ---
Author Organization [facility] Address [address] [facility] [address] [id number] Care Team Providers Care Goods Layer Name Role Phone Ginny Forrest Primary Care Provider Kingsley Chapin [phone] Allergies Allergen (clinical drug ingredient) Drug/Non Drug [...] 57 Performing Lab: Notes/Report: Test performed by [facility], [facility] [place][note 2][address] [facility] , [address], [place] [address] Dusty Degroot MD, Bone Crusher CLIA: [id number] Sodium 142 135-145 mmol/L Potassium 4.3 3.5-5.3 [...] Interpretation:Normal Performing Lab: Notes/Report: Test performed by [facility] [address] [place] [address] , [facility] [address], [place] [address] Dusty Degroot MD, Bone Crusher CLIA: [id number] TSH 1.89 0.43-5.25 mU/L P-Uric Acid Reviewed date:11/13/2024 10:08:29 PM Interpretation:7.9 Performing Lab: Notes/Report: Test performed by [facility] [address] [place] [address] , [address], [place] [address] Dusty Degroot MD, Bone Crusher CLIA: [id number] Uric Acid 7.9 2.4-7.0 mg/dL Echocardiogram Reviewed [...] Ramipril 10 MG TAKE 1 CAPSULE BY [facility] EVERY DAY; Duration: 90 Active Triamterene-HCTZ 37.5-25 MG TAKE 1 TABLE T BY MOUTH EVERY DAY FOR 30 DAYS; Duration: 90 Active Centrum Women - as directed Orally Active Metoprolol Succinate ER 25 MG TAKE 1 TABLET BY MOUTH EVERY DAY FOR 30 DAYS; Duration: 90 Active Immunizations Vaccine Route Administration Date Status Comme nts Tetanus Tdap-Adacel (over 7yrs) IM Intramuscular 03/19/2007 Administered COVID 19 Moderna Unknown 10/12/2020 Administered COVID 19 Moderna Unknown 11/09/2020 Administered COVID 19 Moderna Unknown 05/20/2021 Administered Problems Problem Type SNOMED Code ICD Code Onset Dates Problem Status W/U Status Risk Notes Problem Degeneration of cervical intervertebral disc (99949215) CERVICAL DISC DEGEN (722.4) Active confirmed Problem Type 2 diabetes mellitus (88990643) Type 2 diabetes mellitus (E11.9) Active confirmed Problem Hypothyroid (29723731) Hypothyroid (E03.9) Active confirmed Problem Vitamin D deficiency (93751038) Vitamin D deficiency (E55.9) Active confirmed Problem Gout (86373800) Gout (M10.9) Active confirmed Problem Essential hypertension (49585612) Essential hypertension (I10) Active confirmed Problem Diverticulitis (02041376) Diverticulitis (K57.92) Active confirmed Problem Seasonal allergy (522597813) Seasonal allergies (J30.2) Active confirmed Problem Cervicalgia (60379328) Cervicalgia (M54.2) Active confirmed Problem Peripheral neuropathy (741750898) Peripheral neuropathy (G62.9) Active confirmed Problem Chronic pain syndrome (930447804) Chronic pain syndrome (G89.4) Active confirmed Problem Depression (906130662) Depression (F32.9) Active confirmed Problem Gastroesophageal reflux disease (403027323) Gastroesophageal reflux disease, esophagitis presence not specified (K21.9) Active confirmed Problem Aortic valve disorder (0508869) Heart murmur, aortic (I35.9) Active confirmed Problem Osteoarthritis of knee (921386560) Primary osteoarthritis of right knee (M17.11) Active confirmed Problem Podagra (33894795) Podagra (M10.9) Active confi rmed Problem Dyslipidemia (593983421) Dyslipidemia (E78.5) Active confirmed Problem Obese class II (564605410043492) BMI 39.0-39.9,adult (Z68.39) Active confirmed Problem Allergic rhinitis (31414542) Allergic rhinitis, unspecified allergic rhinitis trigger, unspecified rhinitis seasonality (J30.9) Active confirmed Problem Atopic dermatitis (89444076) Intrinsic eczema (L20.84) Active confirmed Problem Irritable bowel syndrome (80814028) Irritable bowel syndrome, unspecified type (K58.9) Active confirmed Problem Osteopenia (375297900) Osteopenia, unspecified location (M85.80) Active confirmed Problem Allergic rhinitis (11890590) Allergic rhinitis, unspecified seasonality, unspecified trigger (J30.9) Active confirmed Vital Signs Heart Rate 85 /min 12/23/2024 Blood pressure diastolic 80 mm Hg 12/23/2024 Height 63 in 12/23/2024 Blood pressure systolic 130 mm Hg 12/23/2024 Weight 229 lbs 12/23/2024 BMI 40.56 kg/m2 12/23/2024 Encounters Encounter Location Date Provider [facility] [address] [place] [id number] 02/14/2024 R Nigel Dari URI (upper respirato ry infection) J06.9 [facility] [address] [place] [id number] 02/19/2024 R Nigel Dari Diverticulitis K57.9 2 ; Peripheral neuropathy G62.9 and Colon cancer screening Z12.11 [facility] [address] [place] [id number] 02/28/2024 R Nigel Dari Diverticulitis K57.9 2 ; Rectal bleeding K62.5 and Seasonal allergies J30.2 [facility] [address] [place], [place] [id number] 11/06/2024 R Nigel Emmanuelfleet Heart murmur, aortic I35.9 ; Hypothyroid E03.9 ; Hyperuricemia E79.0 ; Type 2 diabetes mellitus E11.9 ; Xerosis cutis L85.3 ; Dyslipidemia E78.5 and BMI 39.0-39.9,adult Z68.39 [facility] [address] [place], [place] [id number] 12/23/2024 R Nigel Dari Leg edema R60.0 ; Xerosis cutis L85.3 and Foot pain M79.673 [facility] [address] [place] [id number] 02/13/2024 Ginny Forrest [facility] [address] [place] [id number] 02/20/2024 R Nigel Dari [facility] [address] [place] [id number] 02/21/2024 Ginny Forrest Diverticulitis K57.9 2 [facility] [address] [place] [id number] 04/29/2024 Ginny Forrest [facility] [address] [place] [id number] 11/05/2024 R Nigel Dari [facility] [address] [place], [place] [id number] 11/13/2024 Ginny Forrest [facility] [address] [place] [id number] 11/25/2024 Ginny Forrest [facility] [address] [place] [id number] 11/30/2024 R Nigel Dari Assessments Encounter Date [...] [address], [place], [place], [id number], Insurance Providers Payer Name Payer Address Payer Phone Subscriber Number Group Number Insured Name Patient Relationship to Insured Coverage Start Date Coverage End Date MEDICARE PART B [place] [id number] [place] [id number] [phone] [id number] KELLY PALSCENCIA Self - patient is the insured [address] [id number] PL[address] Marina HURST Spouse - patient [...]
--- NOTE | 2025-01-09 13:00 | US_ITS ---
FINAL REPORT CLINICAL HISTORY: Neuropathy, Bilateral foot pain, Plantar fasciitis COMPARISON: None FINDINGS: LOWER EXTREMITY SEGMENTAL PRESSURE MEASUREMENTS FINDINGS: Pressure indices are as follows: RIGHT LOWER EXTREMITY: Thigh: 1.08 Calf: 0.90 Ankle, posterior tibial artery: 0.88 Ankle, dorsalis pedis: 0.91 Toe: 0.71 CHRISTOPHER: 0.91 Comments: Findings suggesting mild PVD LEFT LOWER EXTREMITY: Thigh: 1.02 Calf: 0.83 Ankle, posterior tibial artery: 0.85 Ankle, dorsalis pedis: 0.59 Toe: 0.74 CHRISTOPHER: 0.85 Comments: Findings suggesting cmli-wp-dgroylmx PVD IMPRESSION: Peripheral vascular disease mild on the right and oinu-qr-pqrmeykr on the left. Reviewed, Interpreted and Dictated by Dorina Reina MD Transcribed by Vee Gupta Authenticated and [facility]
== END 2025-01-09 23:59 | disposition home or self-care (01) ==
LOC: RT 12:52
PROVIDERS: PCP Family Medicine; Visit Provider Podiatrist
DX: I73.9 Peripheral vascular disease, unspecified (principal); M79.672 Pain in left foot; M79.671 Pain in right foot; G62.9 Polyneuropathy, unspecified; M72.2 Plantar fascial fibromatosis
CPT/HCPCS: 93923

== ENCOUNTER 2025-02-13 16:00 | Outpatient (RCR) | payer MEDICARE, OTHER, SELFPAY ==
--- NOTE | 2025-01-26 16:50 | HMH.OPLYMPH ---
Rehab Inpt Wound Evaluation Rehab OP Lymphedema Evaluation Start: 01/26/25 13:56 Freq: Status: Active Protocol: Document 01/26/25 16:33 PHOKIMBERLEY (Rec: 01/26/25 16:50 PHORDORINDA [id number]) E-signed By Asher Aviles, PT Subjective/History History History This is the initial PT lymphedema eval for Natalya Bell, 74 yowf who presents with c/o B LE increased edema x ~ 4-5 mos with insidious onset of symptoms. he does report she was hospitalized within the past year due to significant abdominal issues which limited her mobility. She also reports worsening idiopathic B foot neuropathy which causes increased pain. She had a recent CHRISTOPHER performed which shows mild to moderate PAD in B LE. She reports PMH of my neck has fused (not surgical fusion, possibly CSM, but pt is unsure) also. Subjective Subjective Current pain is 5/10 in B feet. 2/4 TTP noted to B lower legs. LLIS score: 55 Lymphedema Eval Classification of Lymphedema Secondary Lymphedema Yes Stemmer's sign Stemmer's Sign yes Stage of Lymphedema Lymphedema stages Stage I (Pitting edema, reduces w/ elevation, no fibrosis) Skin Changes Dry Skin Yes Discoloration of Yes Skin Other Changes Yes Pain Scale Pain Scale (0-10) 5 Affected Extremities Areas Affected by Right Lower Extremity,Left Lower Extremity Lymphedema/Edema Lower Extremity Measurements Right MTP Measurement (cm) 22.5 Heel Measurement (cm 35.5 ) 10 cm Proximal to 33.3 Lateral Malleoli Measurement (cm) 20 cm Proximal to 43.2 Lateral Malleoli Measurement (cm) 30 cm Proximal to 47.5 Lateral Malleoli Measurement (cm) 40 cm Proximal to 0 Lateral Malleoli Measurement (cm) 50 cm Proximal to 0 Lateral Malleoli Measurement (cm) 60 cm Proximal to 0 Lateral Malleoli Measurement (cm) Lower Extremity 182.0 Measurement Total ( cm) Left MTP Measurement (cm) 23.3 Heel Measurement (cm 34.6 ) 10 cm Proximal to 34.4 Lateral Malleoli Measurement (cm) 20 cm Proximal to 45.5 Lateral Malleoli Measurement (cm) 30 cm Proximal to 48.3 Lateral Malleoli Measurement (cm) 40 cm Proximal to 0 Lateral Malleoli Measurement (cm) 50 cm Proximal to 0 Lateral Malleoli Measurement (cm) 60 cm Proximal to 0 Lateral Malleoli Measurement (cm) Lower Extremity 186.1 Measurement Total ( cm) Manual Lymphatic Drainage Treatment Area MLD Treatment Area Right Lower Extremity,Left Lower Extremity Wound Problems/Impairments Impairments Problems/ Palpation Tenderness,Impaired Endurance,Impaired Gait Impairmments Pattern,Impaired Walking,Impaired Standing,Impaired Household Care,Impaired Recreational Activities, Increased Edema,Lymphedema Present,Subjective C/O Pain, Impaired Self Care/Self Management Prognosis Rehab Potential Good Comment Skilled therapy services are indicated in order to reduce overall lymphedema in B LE to aid pt improvement in QOL. Clinical Impression Consistent with Yes Diagnosis Lymphedema Patient Goals Lymphedema Patient Goals Lymphedema Short In 2 wks Pt will: Term Patient Goals 1) Reduce pitting edema to 3+ in R LE 2) Reduce circumferential measurements to B LE by 5 cm ea 3) decrease pain in B feet to 4/10 or less Lymphedema Agricultural Adviser In 4 wks Pt will: Patient Goals 1) Reduce pitting edema to 1+ in R LE 2) Reduce circumferential measurements to B LE by 15 cm ea 3) decrease pain in B feet to 2/10 or less 4) be independent with donning/doffing of compression garments. Outpatient Therapy Plan of Care Treatment Plan May Include Therapeutic Exercise Yes Including Home Exercise Program Manual Therapy Yes Techniques Neuromuscular Re- Yes education Therapeutic Yes Activities to Return to Previous Functional/Work Level ADL/Self Care Yes Education Orthotics/Bracing/ Yes Splinting Vasopneumatic Yes Compression Pump Manual Lymphatic Yes Drainage Eval/Re-Eval Yes Frequency Times per week 2 Duration Number of Weeks 4 Addendums This patient is a No candidate for social or vocational rehab ? Patient/Guardian Yes verbally acknowledges understanding of treatment program and consents to further treatment? Patient/Guardian Yes verbally acknowledges understanding of diagnosis, prognosis and goals for treatment? Eval Complexity PT Charges 10064 - High Complexity PHYSICIAN CERTIFICATION: I certify the specified therapy services for Natalya Bell are required, authorized, and reviewed every 30 days.
== END 2025-02-13 23:59 | disposition home or self-care (01) ==
LOC: PT 16:00
PROVIDERS: PCP Family Medicine; Visit Provider Podiatrist
DX: I89.0 Lymphedema, not elsewhere classified (principal)
CPT/HCPCS: 97140; 97163

== ENCOUNTER 2025-02-23 13:37 | Outpatient (CLI) | payer MEDICARE, OTHER, SELFPAY ==
--- OUTSIDE RECORDS SUMMARY | 2024-02-28 11:00 | XMS_ITS ---
Author Organization [facility] Address [address] [place] [id number] Care Team Providers Care Help Desk Team Leader Name Role Phone Kingsley Chapin Primary Care Provider [phone] Kingsley CHAPIN Unavailable Unavailable Allergies Allergen (clinical drug ingredient) Drug/Non Drug Allergy documented on EMR Reaction Allergy Type Onset Date Status amoxicillin / clavulanate Augmentin nausea Drug Allergy Active cefaclor Cefaclor Unknown Drug Allergy Active Levaquin Unknown Drug Allergy Active metoclopramide Reglan Unknown Drug Allergy Ac tive dicyclomine Dicyclomine nausea Drug Allergy Act saran Reason For Referral Reason Rectal bleeding and diverticulitis Diagnosis 1 Rectal bleeding (K62 .5) Referral Organization [facility] Referring Provider First Name Kingsley Manning Referring Provider Last Name Dari Referring Provider Speciality Family [facility] ctice Referred Provider Gastroenterology, . Referred Provider Specialty Gastroentero logy General Notes Kingsley Chapin 02/16 10:32:27 AM > she has an appointment with Dr. Wilson on 05/06/2024 but needs to be seen sooner. Please check with Dr. Jamison in [place] or GI with [facility] in [facility] for sooner apptChichi Brynn 02/29/2024 11:13:57 AM > spoke with part time receptionist at Dr. Jamison's office; they can see the patient within the next few weeks; sent referral to their office Referral Priority Routine REASON FOR VISIT bleeding issues Medications Medication SIG (Take, Route, Frequency, Duration) Notes Start Date End Date Status Librax 5-2.5 MG 1 capsule orally fou r times a day; Duration: 90 days Active Allopurinol 100 MG TAKE 1 TABLET BY FEDERICO TH EVERY DAY; Duration: 90 Active Raloxifene HCl 60 MG TAKE 1 TABLET BY UTH EVERY DAY; Duration: 90 Active Maxzide-25 37.5-25 MG 1 tab orally once daily; Duration: 90 days Active Metoprolol Succinate ER 25 MG TAKE 1 TABLET BY MOUTH EVERY DAY; Duration: 90 days Active Loratadine 10 MG 1 tab(s) orally once a day 10/30/2019 Active Altace 10 MG 1 tab orally once daily; Duration: 90 Active Fluticasone Propionate 50 MCG/ACT 1 spray(s) intranasally once a day 03/03/2019 Active Vitamin D3 50 MCG (1999) TAKE 1 TABLET BY MOUTH EVERY DAY; Duration: 90 days Active Synthroid 25 MCG 1 tab(s) orally once a day Active Centrum Women - as directed Orally Active Indomethacin 25 MG 1 cap(s) orally 3 ti mes a day with dfood 12/01/2019 Not-Taking Venlafaxine HCl 37.5 MG 1 tab(s) orally once a day; Duration: 90 days Not-Takin g Furosemide 20 MG 1 tab(s) orally once a day prn 10/19/2014 Not-Taking Sulfamethoxazole-Trimetho prim 800-160 MG 1 tablet Orally Two times a day 02/28/2024 Active Diclofenac Sodium 75 MG 1 tab(s) orally 2 times a day; Duration: 30 Not-Taking metroNIDAZOLE 500 MG 1 tablet Orally Thr ee times a day; Duration: 10 day(s) Not-Taking DULoxetine HCl 30 MG 1 cap(s) orally at bedtime; Duration: 90 days Not-Taking Problems Problem Type SNOMED Code ICD Code Onset Dates Problem Status W/U Status Risk Notes Problem Seasonal allergy (060955671) Seasonal allergies (J30.2) Active confirmed Vital Signs Blood pressure systolic 124 mm Hg 02/28/20 24 Blood pressure diastolic 70 mm Hg 024 Heart Rate 99 /min 02/28/2024 Height 63 in 02/28/2024 Weight 233.8 lbs 02/28/2024 BMI 41.41 kg/m2 02/28/2024 Encounters Encounter Location Date Provider Diagnosis [facility] [address] [facility] [address] [place] [id number] 02/28/2024 Kingsley Chapin Diverticulitis K57.9 2 ; Rectal bleeding K62.5 and Seasonal allergies J30.2 Assessments Encounter Date Diagnosis (ICD Code) Assessment Notes Treatment Notes Treatment Clinical Notes Section Notes 02/28/2024 Diverticulitis (ICD-10 - K57.92) 02/28/2024 Rectal bleeding (ICD-10 - K62.5) 02/28/2024 Seasonal allergies (ICD-10 - J30.2) Resume Claritin and Flonase she has at home Plan Of Treatment Medication Medication Name Sig Start Date Stop Date Notes Sulfamethoxazole-Trimethopri m 800-160 MG 1 tablet Orally Two times a day 02/28/2024 metroNIDAZOLE 500 MG 1 tablet Orally Thr ee times a day Treatment Notes Assessment Notes Seasonal allergies Resume Claritin and Flonase she has at home Referrals Referral Date Details 02/29/2024 02/29/2024, Rectal b leeding and diverticulitis, . Gastroenterology Next Appt Details Follow Up: prn, Reason: Progress Notes * KELLY PLASCENCIA ROSITADOB: 0 (74 yo F)Acc No.[id number]:02/28/2024 Progress Notes Patient: KELLY VALDOVINOS Provider: Kingsley Chapin M.D. :1950 A ge:73 Y S ex:Female Date:02/28/2024 Address:[address] [place], [place] [id number] Subjective: * Chief Complaints: * 1 . bleeding issues . * HPI: G astroenterology: Pt presents today with continued c/o blood in the stool. Sometimes it is dark and sometimes it is bright red. She still has some left lower quadrant soreness. She did not take the Cipro due to side effects that she read so she decided to take the Metronidazole instead. Pt sts that she took all but 3 tablets with no improvement. She has been referred to Dr. Wilson for colonoscopy cannot be seen until mid April. A llergy/Asthma: She is having a flareup of allergy symptoms with mostly clear rhinorrhea and slight cough. No fever. * ROS: D ERMATOLOGY: no R margaux. n o H juancarlos. G ASTROENTEROLOGY: no N ausea. n o V omiting. n o D iarrhea.? U ROLOGY: no D ifficulty urinating. n o B lood in urine. * Medical History: H ypertension, Diverticulosis, Hiatal hernia, Gastritis, Colitis, S/p arthur, Osteoporosis, C-spine degenerative changes, Thoracic outlet sydrome. * Surgical History: t onsillectomy , adnoidectomy , cholecystectomy . * Hospitalization/Major Diagno stic Procedure: P NEUMONIA 2000, SAME ABOVE . * Family History: F ather: . M other: 90 yrs. P aternal Grand Father: . P aternal Grand Mother: . M aternal Grand Father: . M aternal Grand Mother: . 1 brother(s) . 1 daughter(s) - healthy. . * Social History: C URRENT TOBACCO USE S moking Status: Patient does NOT smoke, Former Smoker: Yes, Quit smokin04/1996. C affeine: no. Exercise: yes. Home smoke detector use: yes. Marital Status: . Occupation: NO. Past smoking status: no, Smoking status: Does not smoke, Second hand smoke exposure: No. Recreational drug use: no. Alcohol: no. Travel ouside [place]: no. * Medications: T aking Centrum Women - Tablet as directed Orally , Taking Fluticasone Propionate 50 MCG/ACT Suspension 1 spray(s) intranasally once a day , Taking Loratadine 10 MG Tablet 1 tab(s) orally once a day , Taking Altace 10 MG Capsule 1 tab orally once daily , Taking Vitamin D3 50 MCG (2000 UT) Tablet TAKE 1 TABLET BY MOUTH EVERY DAY , Taking Synthroid 25 MCG Tablet 1 tab(s) orally once a day , Taking Maxzide-25 37.5-25 MG Tablet 1 tab orally once daily , Taking Metoprolol Succinate ER 25 MG Tablet Extended Release 24 Hour TAKE 1 TABLET BY MOUTH EVERY DAY , Taking Raloxifene HCl 60 MG Tablet TAKE 1 TABLET BY MOUTH EVERY DAY , Taking Librax 5-2.5 MG Capsule 1 capsule orally four times a day , Taking Allopurinol 100 MG Tablet TAKE 1 TABLET BY MOUTH EVERY DAY , Not-Taking metroNIDAZOLE 500 MG Tablet 1 tablet Orally Three times a day , Not-Taking DULoxetine HCl 30 MG Capsule Delayed Release Particles 1 cap(s) orally at bedtime , Not-Taking Venlafaxine HCl 37.5 MG Tablet 1 tab(s) orally once a day , Not-Taking Furosemide 20 MG Tablet 1 tab(s) orally once a day prn , Not-Taking Diclofenac Sodium 75 MG Tablet Delayed Release 1 tab(s) orally 2 times a day , Not-Taking Indomethacin 25 MG Capsule 1 cap(s) orally 3 times a day with dfood , Discontinued Zithromax Z-Sy 250 MG Tablet as directed Orally , Discontinued Ondansetron 4 MG Tablet Disintegrating 1 tab(s) Orally q8h prn , Discontinued Ciprofloxacin HCl 500 MG Tablet 1 tablet Orally Two times a day , Medication List reviewed and reconciled with the patient * Allergies: C efaclor, Reglan, Levaquin, Dicyclomine: nausea - Side Effects, Augmentin: nausea - Side Effects. Objective: * Vitals: W t:233.8, Temp:98.6, BP:124/70, HR:99, O2 Sat:97% on RA, Nurse:JOEL, Ht: 63, BMI:41.41. Assessment: * Assessment: 1. D iverticulitis - K57.92 (Primary) 2 . R ectal bleeding - K62.5 ? 3 . S easonal allergies - J30.2 Plan: * Treatment: 2. R ectal bleeding Referral To:. Gastroenterology Gastroenterology Reason:Rectal bleeding and diverticulitis 3. S easonal allergies Notes: Resume Claritin and Flonase she has at home * Procedure Codes: 9 4760 PULSE OX * Follow Up: p rn * Images: Billing Information: * Visit Code: 21576 Office Visit, Est Pt., Level 3. * Procedure Codes: 45302 PULSE OX. * Electronic signature of Kingsley Chapin MD on 02/23/2025 at 01:41 PM EDT Sign off status: Pending * Provider: Kingsley Chapin M.D. Date: 0 02/28/2024 Generated for Humera weinberg/Rebeka/Angelic on: 0 02/23/2025 01:41 PM EDT Consultation Request Notes Referral Date Referring Provider Referred Provider Not es 02/29/2024 Kingsley Chapin Gastroenterology, . Rec tala bleeding and diverticulitis
--- OUTSIDE RECORDS SUMMARY | 2024-11-06 07:45 | XMS_ITS ---
Author Organization [facility] Address 12[address] [facility] [address] [id number] Care Team Providers Care Soil Conservation Technician Name Role Phone Kingsley Chapin Primary Care Provider [phone] Kingsley CHAPIN Unavailable Unavailable Allergies Allergen (clinical drug ingredient) Drug/Non Drug Allergy documented on EMR Reaction Allergy Type Onset Date Status amoxicillin / clavulanate Augmentin nausea Drug Allergy Active cefaclor Cefaclor Unknown Drug Allergy Active Levaquin Unknown Drug Allergy Active metoclopramide Reglan Unknown Drug Allergy Ac tive dicyclomine Dicyclomine nausea Drug Allergy Act saran Results Component Value Reference Range Notes Glycohemoglobin A1c (in hous e) Reviewed date:11/13/2024 10:08:29 PM Interpretation:6.4% Performing Lab: Notes/Report: 6.4% glycohemoglobin 6.4% 5 - 6.5 % P-Comprehensive Metabolic Pa levi (CMP) Reviewed date:11/13/2024 10:08:28 PM Interpretation:gluc 102, Cr 1.02, gfr 57 Performing Lab: Notes/Report: Test performed by [facility] [address] [facility] , [address], [place] [address] Dusty Degroot MD, Table Games Shift Manager CLIA: [id number] Sodium 142 135-145 mmol/L Potassium 4.3 3.5-5.3 mmol/L Chloride 100 97-108 mmol/L CO2 26 22-32 mmol/L Glucose 102 65-99 mg/dL BUN 23 8-23 mg/dL Creatinine 1.02 0.50-1.00 mg/dL Calcium 10.1 8.6-10.4 mg/dL eGFR by Creatinine 57 >59 mL/min/1.73m2 Protein 7.3 6.0-8.3 g/dL Albumin 4.5 3.5-5.3 g/dL Alkaline Phosphatase 72 35-121 IU/L ALT (SGPT) 19 <5-47 IU/L AST (SGOT) 31 <5-40 IU/L Bilirubin, Total 0.3 <0.2-1.2 mg/dL A/G Ratio 1.6 1.1-2.5 P-TSH Reviewed date:11/13/2024 10:08:28 PM Interpretation:Normal Performing Lab: Notes/Report: Test performed by [facility] [address] [place], [place] [address] [place] , [place] [address] Dusty Degroot MD, Table Games Shift Manager CLIA: [id number] TSH 1.89 0.43-5.25 mU/L P-Uric Acid Reviewed date:11/13/2024 10:08:29 PM Interpretation:7.9 Performing Lab: Notes/Report: Test performed by [facility] [address] [place] [address] , [address], [place] [address] Dusty Degroot MD, Table Games Shift Manager CLIA: [id number] Uric Acid 7.9 2.4-7.0 mg/dL Echocardiogram Reviewed date:11/30/2024 10:29:51 PM Interpretation: Performing Lab: Notes/Report: REASON FOR VISIT check up with labs Medications Medication SIG (Take, Route, Frequency, Duration) Notes Start Date End Date Status Venlafaxine HCl 37.5 MG 1 tab(s) orally once a day; Duration: 90 days Not-Takin g DULoxetine HCl 30 MG 1 cap(s) orally at bedtime; Duration: 90 days Not-Taking Diclofenac Sodium 75 MG 1 tab(s) orally 2 times a day; Duration: 30 Not-Taking Furosemide 20 MG 1 tab(s) orally once a day prn 10/19/2014 Not-Taking Indomethacin 25 MG 1 cap(s) orally 3 ti mes a day with dfood 12/01/2019 Not-Taking Raloxifene HCl 60 MG 1 tablet Orally Onc e a day; Duration: 30 days Active Triamterene-HCTZ 37.5-25 MG 1 tab(s) Orally Once a day; Duration: 30 days Active metroNIDAZOLE 500 MG 1 tablet Orally Thr ee times a day; Duration: 10 day(s) Not-Taking Altace 10 MG 1 tab orally Once a day; Duration: 30 days Active Allopurinol 100 MG TAKE 1 TABLET BY FEDERICO TH EVERY DAY FOR 30 DAYS; Duration: 90 Active Loratadine 10 MG 1 tab(s) orally once a day 10/30/2019 Active Librax 5-2.5 MG 1 capsule orally fou r times a day; Duration: 90 days Active Vitamin D3 50 MCG (2000 UT) TAKE 1 TABLET BY MOUTH EVERY DAY; Duration: 90 days Active Levothyroxine Sodium 25 MCG TAKE 1 TABLET BY MOUTH EVERY DAY FOR 90 DAYS; Duration: 90 Active Metoprolol Succinate ER 25 MG 1 tablet Orally Once a day; Duration: 30 days Active Centrum Women - as directed Orally Active Fluticasone Propionate 50 MCG/ACT 1 spray(s) intranasally once a day 03/03/2019 Active Problems Problem Type SNOMED Code ICD Code Onset Dates Problem Status W/U Status Risk Notes Problem Aortic valve disorder (4479644) Heart murmur, aortic (I35.9) Active confirmed Problem Obese class II (7889490886519 05) BMI 39.0-39.9,ad ult (Z68.39) Active confirmed Vital Signs Blood pressure systolic 127 mm Hg 11/07/19 25 Blood pressure diastolic 70 mm Hg 025 Heart Rate 94 /min 11/06/2024 Height 63 in 11/06/2024 Weight 225.6 lbs 11/06/2024 BMI 39.96 kg/m2 11/06/2024 Encounters Encounter Location Date Provider Diagnosis [facility] [address] [facility] [address] [place], [place] [phone] 11/06/2024 R Nigel Chapin Heart murmur, aortic I35.9 ; Hypothyroid E03.9 ; Hyperuricemia E79.0 ; Type 2 diabetes mellitus E11.9 ; Xerosis cutis L85.3 ; Dyslipidemia E78.5 and BMI 39.0-39.9,adult Z68.39 Assessments Encounter Date Diagnosis (ICD Code) Assessment Notes Treatment Notes Treatment Clinical Notes Section Notes 11/06/2024 Heart murmur, aortic (ICD-10 - I35.9) 11/06/2024 Hypothyroid (ICD-10 - E03.9) 11/06/2024 Hyperuricemia (ICD-10 - E79.0) 11/06/2024 Type 2 diabetes mellitus (ICD-10 - E11.9) 11/06/2024 Xerosis cutis (ICD-10 - L85.3) Moisturizing lotions to feet 11/06/2024 Dyslipidemia (ICD-10 - E78.5) 11/06/2024 BMI 39.0-39.9,adult (ICD-10 - Z68.39) Plan Of Treatment Treatment Notes Assessment Notes Xerosis cutis Moisturizing lotions to feet Next Appt Details Follow Up: via phone to repo rt test results, Reason: Progress Notes * KELLY PLASCENCIADOB: 0 (74 yo F)Acc No.[id number]:11/06/2024 Progress Notes Patient: KELLY VALDOVINOS Provider: Kingsley Chapin M.D. :1950 A ge:73 Y S ex:Female Date:11/06/2024 Address:[address] [place] [address] Subjective: * Chief Complaints: * 1 . Check up with labs. * HPI: A nkle/Foot: She comes in complaining of some soreness on the bottom of her left heel. She states the skin has been peeling. Since her last visit she has seen Dr. Lewis and has been diagnosed with neuropathy but prescribed no specific therapy. 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 At her appoint with Dr. Lewis, she was told she had a heart murmur. G astroenterology: Also, since her last visit, she had an appoint with Dr. Jamison and was diagnosed with C. difficile colitis treated with vancomycin. Her bowels, for the most part, are back to normal. * ROS: D ERMATOLOGY: no R margaux. [...] . * Hospitalization/Major Diagno stic Procedure: P MASTER 2000, SAME ABOVE . * Family History: [...] tab(s) orally once a day , Taking Vitamin D3 50 MCG (2000 UT) Tablet TAKE 1 TABLET BY MOUTH EVERY DAY , Taking Librax 5-2.5 MG Capsule 1 capsule orally four times a day , Taking Levothyroxine Sodium 25 MCG Tablet TAKE 1 TABLET BY MOUTH EVERY DAY FOR 90 DAYS , Taking Metoprolol Succinate ER 25 MG Tablet Extended Release 24 Hour 1 tablet Orally Once a day , Taking Allopurinol 100 MG Tablet TAKE 1 TABLET BY MOUTH EVERY DAY FOR 30 DAYS , Taking Triamterene-HCTZ 37.5-25 MG Tablet 1 tab(s) Orally Once a day , Taking Raloxifene HCl 60 MG Tablet 1 tablet Orally Once a day , Taking Altace 10 MG Capsule 1 tab orally Once a day , Not-Taking metroNIDAZOLE 500 MG Tablet 1 [...] 3 times a day with dfood , Medication List reviewed and reconciled with the patient * Allergies: C efaclor, Reglan, Levaquin, Dicyclomine: nausea - Side Effects, Augmentin: nausea - Side Effects. Objective: * Vitals: W t: 225.6, Temp: 98.2, BP: 127/70, HR: 94, Nurse: mm, Ht: 63, BMI:39.96. * Examination: G eneral Examination: General Appearance: N AD. N frederic: L imited range of motion. H eart: R egular with grade 2/6 systolic murmur at the right upper sternal border.?Lungs: clear to auscultation. S kin: S kin on the bottom of the heel is mildly erythematous and is dry and peeling.. E xtremities: n o leg edema. Assessment: * Assessment: 1. H eart murmur, aortic - I35.9 (Primary) 2 . H ypothyroid - E03.9 ? 3 . H yperuricemia - E79.0 4 . T ype 2 diabetes mellitus - E11.9? 5. X erosis cutis - L85.3 6 . D yslipidemia - E78.5 ? 7 . B CA 39.0-39.9,adult - Z68.39 Plan: * Treatment: Value Reference Range A /G Ratio 1.6 1.1-2.5 - * A lbumin 4.5 3.5-5.3 - g/dL * A lkaline Phosphatase 72 35-121 - IU/L * A LT (SGPT) 19 <5-47 - IU/L * A ST (SGOT) 31 <5-40 - IU/L * B ilirubin, Total 0.3 <0.2-1.2 - mg/dL * B UN 23 8-23 - mg/dL * C alcium 10.1 8.6-10.4 - mg/dL * C hloride 100 97-108 - mmol/L * C O2 26 22-32 - mmol/L * C reatinine 1.02 H 0.50-1.00 - mg/dL * G lucose 102 H 65-99 - mg/dL * P otassium 4.3 3.5-5.3 - mmol/L * S odium 142 135-145 - mmol/L * P rotein 7.3 6.0-8.3 - g/dL * e GFR by Creatinine 57 L >59 - mL/min/1.73m2 * Kingsley Chapin 11/13/2024 1 0:08:17 PM >See phone encounter ?Imaging: Echocardiogram (Performed Date - 11/19/2024)* Kerline Cadet 11/06/2024 01:1 3:04 PM > no auth required; CPT code 38936; faxed to [facility] Kingsley Thomas 11/30/2024 10:29:43 PM EDT > See phone encounter 2.?Hypothyroid?LAB: P-TSH (Collection Date & Time - 11/06/2024 11:40 AM)?Normal* Value Reference Range T SH 1.89 0.43-5.25 - mU/L * Kingsley Chapin 11/13/2024 1 0:08:17 PM >See phone encounter 3.?Hyperuricemia?LAB: P-Uric Acid (Collection Date & Time - 11/06/2024 11:40 AM)?7.9* Value Reference Range U gloria Acid 7.9 H 2.4-7.0 - mg/dL * Kingsley Chapin 11/13/2024 1 0:08:17 PM >See phone encounter 4.?Type 2 diabetes mellitus?LAB: Glycohemoglobin A1c (in house) (Collection Date & Time - 11/06/2024)? 6.4%* Value Reference Range g lycohemoglobin 6.4% 5 - 6.5 % * Sirena Gonzalez 11/06/2024 02:4 0:08 PM > Kingsley Chapin 11/13/2024 10:08:17 PM >See phone encounter 5.?Xerosis cutis? Notes: Moisturizing lotions to feet?? * Procedure Codes: G 2211 Complex e/[place], [address] GLYCATED HEMOGLOBIN TEST, Modifiers: QW , 3044F HG A1C LEVEL LT 7.0%, G8752 MOST RECENT SYSTOLIC BP < 140MM HG, G8754 MOST RECENT DIASTOLIC BP < 90MM HG * Follow Up: v ia phone to report test results * Images: Billing Information: * Visit Code: 50021 Office Visit, Est Pt., Level 4. * Procedure Codes: G2211 Complex e/[place]. [address] GLYCATED HEMOGLOBIN TEST. Modifiers: QW 3044F HG A1C LEVEL LT 7.0%. G8752 MOST RECENT SYSTOLIC BP < 140MM HG. G8754 MOST RECENT DIASTOLIC BP < 90MM HG. * Electronic signature of Kingsley Chapin MD on 02/23/2025 at 01:41 PM EDT Sign off status: Pending * Provider: Kingsley Chapin M.D. Date: 0 11/06/2024 Generated for Humera weinberg/Rebeka/Alexsandraitting on: 0 02/23/2025 01:41 PM EDT History and Physical Notes * HPI (History of Present Illness) Category Sub-Category Detail Notes Category Not es Ankle/Foot At her appoint with Dr. Lewis, she was told she had a heart murmur. Examination Category Sub-Category Detail Notes Category Not es General Examination Heart: Regular with grade 2/6 systolic murmur at the right upper sternal border Lungs: clear to auscultatio n Extremities: no leg edema General Appearance: NAD Skin: Skin on the bottom o f the heel is mildly erythematous and is dry and peeling. Neck: Limited range of mot ion
--- OUTSIDE RECORDS SUMMARY | 2024-12-23 09:30 | XMS_ITS ---
Author [facility] Address [facility] [address] [id number] Care Team Providers Care Manager Access Name Role Phone Kingsley Chapin Primary Care Provider Kingsley CHAPIN Unavailable Unavailable Allergies Allergen (clinical drug ingredient) Drug/Non Drug Allergy documented on EMR Reaction Allergy Type Onset Date Status amoxicillin / clavulanate Augmentin nausea Drug Allergy Active cefaclor Cefaclor Unknown Drug Allergy Active Levaquin Unknown Drug Allergy Active metoclopramide Reglan Unknown Drug Allergy Ac tive dicyclomine Dicyclomine nausea Drug Allergy Act saran REASON FOR VISIT swollen feet Medications Medication SIG (Take, Route, Frequency, Duration) Notes Start Date End Date Status metOLazone 5 MG 1 tablet Orally christos y; Duration: 30 days 12/23/2024 Active Ramipril 10 MG TAKE 1 CAPSULE BY MO UTH EVERY DAY; Duration: 90 Active Metoprolol Succinate ER 25 MG TAKE 1 TABLET BY MOUTH EVERY DAY FOR 30 DAYS; Duration: 30 Active Triamterene-HCTZ 37.5-25 MG TAKE 1 TABLE T BY MOUTH EVERY DAY FOR 30 DAYS; Duration: 90 Active Levothyroxine Sodium 25 MCG TAKE 1 TABLE T BY MOUTH EVERY DAY FOR 90 DAYS; Duration: 90 Active Allopurinol 100 MG TAKE 1 TABLET BY FEDERICO TH EVERY DAY FOR 30 DAYS; Duration: 90 Active Raloxifene HCl 60 MG 1 tablet Orally Onc e a day; Duration: 30 days Active Librax 5-2.5 MG 1 capsule orally fou r times a day; Duration: 90 days Active Fluticasone Propionate 50 MCG/ACT 1 spray(s) intranasally once a day 03/03/2019 Active Loratadine 10 MG 1 tab(s) orally once a day 10/30/2019 Active Centrum Women - as directed Orally Active Vital Signs Blood pressure systolic 130 mm Hg 12/24/19 25 Blood pressure diastolic 80 mm Hg 025 Heart Rate 85 /min 12/23/2024 Height 63 in 12/23/2024 Weight 229 lbs 12/23/2024 BMI 40.56 kg/m2 12/23/2024 Encounters Encounter Location Date Provider Diagnosis [facility] [address] [facility] [address] [place] [id number] 12/23/2024 Kingsley Chapin Leg edema R60.0 ; Xerosis cutis L85.3 and Foot pain M79.673 Assessments Encounter Date Diagnosis (ICD Code) Assessment Notes Treatment Notes Treatment Clinical Notes Section Notes 12/23/2024 Leg edema (ICD-10 - R60.0) 12/23/2024 Xerosis cutis (ICD-10 - L85.3) Moisturizing lotions to feet 12/23/2024 Foot pain (ICD-10 - M79.673) - - probably component of plantar fasciitis Keep appointment with podiatry in 2 weeks Plan Of Treatment Medication Medication Name Sig Start Date Stop Date Notes metOLazone 5 MG 1 tablet Orally daily; Duration: 30 days 0 12/23/2024 Treatment Notes Assessment Notes Xerosis cutis Moisturizing lotions to feet Foot pain Keep appointment wit h podiatry in 2 weeks Next Appt Details Follow Up: 4 Weeks, Reason: Progress Notes * KELLY PLASCENCIADOB: 0 (74 yo F)Acc No.[id number]:12/23/2024 Progress Notes Patient: KELLY VALDOVINOS Provider: Kingsley Chapin M.D. :1950 A ge:74 Y S ex:Female Date:12/23/2024 Address:[address] [place], [place] [id number] Subjective: * Chief Complaints: * 1 . Swollen feet. * HPI: C ardiology: She presents with complaints of bilateral leg swelling over the past few weeks. She denies decreased urine output and complains of urinary frequency. No dysuria. No increased shortness of breath, palpitations, or chest pain. Recent echocardiogram was negative except for mild aortic stenosis. A nkle/Foot: She continues to complain of ration pain on the bottom of the left foot. She is scheduled to see podiatry in 2 weeks. * ROS: D ERMATOLOGY: no R margaux. n o H juancarlos. G ASTROENTEROLOGY: no N ausea. n o V omiting. n o D iarrhea.? U ROLOGY: no D ifficulty urinating. n o B lood in urine. * Medical History: H ypertension, Diverticulosis, Hiatal hernia, Gastritis, Colitis, S/p arthur, Osteoporosis, C-spine degenerative changes, Thoracic outlet sydrome, Idiopathic polyneuropathy per EMG/NCV - Dr. Lewis (06/2024), Aortic stenosis (mild- mod) by echo 10/2024. * Surgical History: t onsillectomy , adnoidectomy [...] tab(s) orally once a day , Taking Librax 5-2.5 MG Capsule 1 capsule orally four times a day , Taking Levothyroxine Sodium 25 MCG Tablet TAKE 1 TABLET BY MOUTH EVERY DAY FOR 90 DAYS , Taking Allopurinol 100 MG Tablet TAKE 1 TABLET BY MOUTH EVERY DAY FOR 30 DAYS , Taking Raloxifene HCl 60 MG Tablet 1 tablet Orally Once a day , Taking Ramipril 10 MG Capsule TAKE 1 CAPSULE BY MOUTH EVERY DAY , Taking Metoprolol Succinate ER 25 MG Tablet Extended Release 24 Hour TAKE 1 TABLET BY MOUTH EVERY DAY FOR 30 DAYS , Taking Triamterene-HCTZ 37.5-25 MG Tablet TAKE 1 TABLET BY MOUTH EVERY DAY FOR 30 DAYS , Discontinued Vitamin D3 50 MCG (2000 UT) Tablet TAKE 1 TABLET BY MOUTH EVERY DAY , Discontinued metroNIDAZOLE 500 MG Tablet 1 tablet Orally Three times a day , Discontinued DULoxetine HCl 30 MG Capsule Delayed Release Particles 1 cap(s) orally at bedtime , Discontinued Venlafaxine HCl 37.5 MG Tablet 1 tab(s) orally once a day , Discontinued Furosemide 20 MG Tablet 1 tab(s) orally once a day prn , Discontinued Diclofenac Sodium 75 MG Tablet Delayed Release 1 tab(s) orally 2 times a day , Discontinued Indomethacin 25 MG Capsule 1 cap(s) orally 3 times a day with dfood , Medication List reviewed and reconciled with the patient * Allergies: C efaclor, Reglan, Levaquin, Dicyclomine: nausea - Side Effects, Augmentin: nausea - Side Effects. Objective: * Vitals: W t: 229, Temp: 98.8, BP: 130/80, HR: 85, Nurse: luciana, Ht: 63, BMI:40.56. * Examination: C ardiology: General Appearance: p leasant, NAD. H eart sounds: R RR, normal S1, S2. M urmur, click , gallop: G rade, 2/6, systolic murmur RUSB. L ungs:?clear, no rales or wheezes. E xtremities: 3 + PTE bilaterally. Assessment: * Assessment: 1. L eg edema - R60.0 (Primary) 2 . X erosis cutis - L85.3 3 . F oot pain - M79.673 N otes :- - probably component of plantar fasciitis Plan: * Treatment: 2. X erosis cutis Notes: Moisturizing lotions to feet 3. F oot pain Notes: Keep appointment with podiatry in 2 weeks * Procedure Codes: G 2211 Complex e/m visit add on, 1036F TOBACCO NON-USER, G8783 BP SCR PRFRM RCMDD DEFIND SCR INTVL, G8752 MOST RECENT SYSTOLIC BP < 140MM HG, G8754 MOST RECENT DIASTOLIC BP < 90MM HG * Follow Up: 4 Weeks * Images: Billing Information: * Visit Code: 16124 Office Visit, Est Pt., Level 3. * Procedure Codes: G2211 Complex e/m visit add on. 1036F TOBACCO NON-USER. G8783 BP SCR PRFRM RCMDD DEFIND SCR INTVL. G8752 MOST RECENT SYSTOLIC BP < 140MM HG. G8754 MOST RECENT DIASTOLIC BP < 90MM HG. * Electronic signature of Kingsley Chapin MD on 02/23/2025 at 01:41 PM EDT Sign off status: Pending * Provider: Kingsley Chapin M.D. Date: 0 12/23/2024 Generated for Humera weinberg/Rebeka/Alexsandraitting on: 0 02/23/2025 01:41 PM EDT History and Physical Notes * Examination Category Sub-Category Detail Notes Category Not es Cardiology Lungs: clear, no rales or wheezes Heart sounds: RRR, normal S1, S2 Extremities: 3+ PTE bilaterally Murmur, click , gallop: Grade, 2/6, syst olic murmur RUSB General Appearance: pleasant, NAD
--- OUTSIDE RECORDS SUMMARY | 2025-01-12 06:09 | XMS_ITS ---
[facility] Organization [facility] Address [facility] [address] [place] [id number] Care Team Providers Care Supervisor [employer] Name Role Phone Kingsley Chapin Primary Care Provider Kingsley CHAPIN Unavailable Unavailable Ginny Forrest [phone] REASON FOR VISIT due dexa, prabhakar Encounters Encounter Location Date Provider Diagnosis [place] [address] [facility] 36 [facility] [address] [place] [id number] 01/12/2025 Ginny Forrest Encounter for screen ing for osteoporosis Z13.820 Assessments Encounter Date Diagnosis (ICD Code) Assessment Notes Treatment Notes Treatment Clinical Notes Section Notes 01/12/2025 Encounter for screening for osteoporosis (ICD-10 - Z13.820) Plan Of Treatment No Information Progress Notes * KELLY PLASCENCIADOB: 0 (74 yo F)Acc No.[id number]:01/12/2025 Patient: KELLY VALDOVINOS :1950 A ge:74 Y S ex:Female Address:[address] [place] [address] Subjective: * Chief Complaints: * D ue dexa, prabhakar * Medical History: * Surgical History: * Hospitalization/Major Diagno stic Procedure: * Medications: Objective: * Vitals: * Physical Examination: Assessment: * Assessment: 1. E ncounter for screening for osteoporosis - Z13.820 (Primary) Plan: * Treatment: * Procedure Codes: * true * Date: Generated for Humera weinberg/Rebeka/Angelic on: 0 02/23/2025 01:42 PM EDT
--- OUTSIDE RECORDS SUMMARY | 2025-01-20 09:45 | XMS_ITS ---
Author Organization [facility] Address [facility] [address] [id number] Care Team Providers Care Lead Programmer Name Role Phone Kingsley Chapin Primary Care [...] Drug Allergy Act saran REASON FOR VISIT 4 weeks Medications Medication SIG (Take, Route, Frequency, Duration) Notes Start Date End Date Status metOLazone 5 MG 1 tablet Orally daily Active Metoprolol Succinate ER 25 MG TAKE 1 TABLET BY MOUTH EVERY DAY FOR 30 DAYS; Duration: 90 Active Raloxifene HCl 60 MG TAKE 1 TABLET BY [facility] EVERY DAY FOR 30 DAYS; Duration: 90 Active Triamterene-HCTZ 37.5-25 MG TAKE 1 TABLE T BY MOUTH EVERY DAY FOR 30 DAYS; Duration: 90 Active Ramipril 10 MG TAKE 1 CAPSULE BY [facility] EVERY DAY; Duration: 90 Active Allopurinol 100 MG TAKE 1 TABLET BY [place] EVERY DAY FOR 30 DAYS; Duration: 90 Active Levothyroxine Sodium 25 MCG TAKE 1 TABLE T BY MOUTH EVERY DAY FOR 90 DAYS; Duration: 90 Active Librax 5-2.5 MG 1 capsule orally fou r times a day; Duration: 90 days Active Loratadine 10 MG 1 tab(s) orally once a day 10/30/2019 Active Fluticasone Propionate 50 MCG/ACT 1 spray(s) intranasally once a day 03/03/2019 Active Centrum Women - as directed Orally Active Problems Problem Type SNOMED Code ICD Code Onset Dates Problem Status W/U Status Risk Notes Problem Diabetic peripheral neuropathy associated with type 2 diabetes mellitus (0733665948801) Type 2 diabetes mellitus with diabetic neuropathy, unspecified whether long term care pharmacist insulin use (E11.40) Active confirmed Vital Signs Blood pressure systolic 124 mm Hg 01/21/20 25 Blood pressure diastolic 82 mm Hg 025 Heart Rate 85 /min 01/20/2025 Height 63 in 01/20/2025 Weight 227.8 lbs 01/20/2025 BMI 40.35 kg/m2 01/20/2025 Encounters Encounter Location Date Provider Diagnosis [facility] [address] [facility] [address] [place] [id number] 01/20/2025 Kingsley Chapin Type 2 diabetes mellitus with diabetic neuropathy, unspecified whether alf insulin use E11.40 and Leg edema R60.0 Assessments Encounter Date Diagnosis (ICD Code) Assessment Notes Treatment Notes Treatment Clinical Notes Section Notes 01/20/2025 Type 2 diabetes mellitus with diabetic neuropathy, unspecified whether alf insulin use (ICD-10 - E11.40) 01/20/2025 Leg edema (ICD-10 - R60.0) Plan Of Treatment Medication Medication Name Sig Start Date Stop Date Notes metOLazone 5 MG 1 tablet Orally daily Next Appt Details Follow Up: f/u with Dr. Andrew yoder, Reason: Progress Notes * KELLY PLASCENCIA ROSITADOB: 0 (74 yo F)Acc No.[id number]:01/20/2025 Progress Notes Patient: KELLY VALDOVINOS Provider: Kingsley Chapin M.D. :1950 A ge:74 Y S ex:Female Date:01/20/2025 Address:[address] [place], [place] [address] [id number] Subjective: * Chief Complaints: * 1 . 4 weeks. * HPI: C ardiology: She returns for follow-up on her lower extremity edema. She has seen some improvement since starting metolazone but still has significant swelling. Since her last visit, she has had consultation with Dr. Cabral and has been diagnosed with heel spurs and plantar fasciitis along with arthritis of both feet. According to her consultation note, she is also being scheduled for arterial Dopplers and referred for lymphedema therapy. A llergy/Asthma: c/o cough. c/o nasal congestion s easonal. c/o headache. Denies : shortness of breath. D enies : sinus pain. D enies : fever. D enies : nasal drainage. H PI: She was seen by podiatry since last OV and had xrays and arterial doppler studies. * ROS: D ERMATOLOGY: no R margaux. [...] EVERY DAY FOR 30 DAYS , Taking Ramipril 10 MG Capsule TAKE 1 CAPSULE BY MOUTH EVERY DAY , Taking Triamterene-HCTZ 37.5-25 MG Tablet TAKE 1 TABLET BY MOUTH EVERY DAY FOR 30 DAYS , Taking Raloxifene HCl 60 MG Tablet TAKE 1 TABLET BY MOUTH EVERY DAY FOR 30 DAYS , Taking Metoprolol Succinate ER 25 MG Tablet Extended Release 24 Hour TAKE 1 TABLET BY MOUTH EVERY DAY FOR 30 DAYS , Taking metOLazone 5 MG Tablet 1 tablet Orally daily , Notes to Pharmacist: Dx is R60.0 as noted, Medication List reviewed and reconciled with the patient * Allergies: C efaclor, Reglan, Levaquin, Dicyclomine: nausea - Side Effects, Augmentin: nausea - Side Effects. Objective: * Vitals: W t: 227.8, Temp: 97.9, BP: 124/82, HR: 85, Nurse: pe, Ht: 63, BMI:40.35. * Examination: C ardiology: General Appearance: p leasant, NAD. H eart sounds: R RR, normal S1, S2. M urmur, click , gallop: G rade, 2/6, systolic murmur RUSB. L ungs:?clear, no rales or wheezes. E xtremities: 2 + PTE bilaterally. Assessment: * Assessment: 1. L eg edema - R60.0 (Primary) 2 . T ype 2 diabetes mellitus with diabetic neuropathy, unspecified whether alf insulin use - E11.40 Plan: * Treatment: * Procedure Codes: G 2211 Complex e/m visit add on, 1036F TOBACCO NON-USER, G8950 PREHTN/HTN BP DOC INDCD F/U DOC, G8752 MOST RECENT SYSTOLIC BP < 140MM HG, G8754 MOST RECENT DIASTOLIC BP < 90MM HG * Follow Up: f /u with Dr. Cabral * Images: Billing Information: * Visit Code: 09330 Office Visit, Est Pt., Level 3. * Procedure Codes: G2211 Complex e/m visit add on. 1036F TOBACCO NON-USER. G8950 PREHTN/HTN BP DOC INDCD F/U DOC. G8752 MOST RECENT SYSTOLIC BP < 140MM HG. G8754 MOST RECENT DIASTOLIC BP < 90MM HG. * Electronic signature of Kingsley Chapin MD on 02/23/2025 at 01:41 PM EDT Sign off status: Pending * Provider: Kingsley Chapin M.D. Date: 01/20/2025 Generated for Humera weinberg/Rebeka/eTransmitting on: 0 02/23/2025 01:41 PM EDT History and Physical Notes * HPI (History of Present Illness) Category Sub-Category Detail Notes Category Not es Allergy/Asthma sinus pain shortness of breath cough nasal congestion seasonal headache fever nasal drainage HPI She was seen by podiatry since last OV and had xrays and arterial doppler studies Examination Category Sub-Category Detail Notes Category Not es Cardiology Lungs: clear, no rales or wheezes Heart sounds: RRR, normal S1, S2 Extremities: 2+ PTE bilaterally Murmur, click , gallop: Grade, 2/6, syst olic murmur RUSB General Appearance: pleasant, NAD
--- OUTSIDE RECORDS SUMMARY | 2025-02-23 13:42 | XMS_ITS | Clinical Summary ---
Author Organization [facility] Address [address] [place] [address] Phone Care Team Providers Care Cyber Crime Investigator Name Role Phone Unavailable Primary Care Provider [...] drink = 0.6 oz pur e alcohol) [facility] Utilities Answer Date Recorded In the past [...] Date Recorded PHQ-2 Total Score 1 04/30/2024 [facility] [place] of Occupat ional Health - Occupational Stress [...] money to get more. Never true 04/30/2024 [facility] IP Transportation Answer D ate Recorded In [...] of 2) 12/10/1999 Bone Density Screening 2014 RSV or 60+ (1 - 1-dose 75+ series) 2024 COVID-19 Vaccine (4 - 2024-2 6 season) 2025 05/20/2021, 11/09/2020, 10/12/2020 Influenza Vaccine (#1) 2025 Hepatitis B Vaccine Aged Out No longe r eligible based on patient's age to complete this topic Meningococcal B Vaccine Aged Out No l onger eligible based on patient's age to complete this topic Insurance MEDICARE [place] PART A AND B [employer] [place]ICARE [place] PART A AND B [employer] [facility] [email or web address] INSURANCE [facility] MEDICARE [place] PART A AND B [employer] Advance Directives For more information, please contact: [phone] * DNR (Latest Code Status on File) Date Activated Date Inactivated Comments 04/30/2024 5:30 PM 05/01/2024 5:04 PM * Full Code Date Activated Date Inactivated Comments 04/30/2024 4:35 PM 04/30/2024 5:30 PM
--- OUTSIDE RECORDS SUMMARY | 2025-02-23 13:43 | XMS_ITS | Patient Health Record ---
Author Organization [facility] Address [address] [facility] [address] [id number] Care Team Providers Care Packing Machine Pilot Can Router Name Role Phone Kingsley Chapin Primary Care Provider Kingsley CHAPIN Unavailable Unavailable Ginny Forrest Unavailable [phone] Allergies Allergen (clinical drug ingredient) Drug/Non Drug [...] 57 Performing Lab: Notes/Report: Test performed by [facility] [facility] , [address], [place] [address] Dusty Degroot MD, Mortgage Branch Manager CLIA: [id number] Sodium 142 135-145 mmol/L Potassium 4.3 3.5-5.3 [...] Interpretation:Normal Performing Lab: Notes/Report: Test performed by [facility] [address] [place] [address] , [facility], [place] [address] Dusty Degroot MD, Mortgage Branch Manager CLIA: [id number] TSH 1.89 0.43-5.25 mU/L P-Uric Acid Reviewed date:11/13/2024 10:08:29 PM Interpretation:7.9 Performing Lab: Notes/Report: Test performed by [facility] [address] [place] [address] [address]abez[address], [place] [address] Dusty Degroot MD, Mortgage Branch Manager CLIA: [id number] Uric Acid 7.9 2.4-7.0 mg/dL Echocardiogram Reviewed date:11/30/2024 10:29:51 PM Interpretation: Performing Lab: Notes/Report: colonoscopy Reviewed date:03/20/2024 12:44:15 PM Interpretation:DR RUSSELL--ALSO EDG Performing Lab: Notes/Report: DR RUSSELL--ALSO EDG Medications Medication SIG (Take, Route, Frequency, Duration) Notes Start Date End Date Status Allopurinol 100 MG 1 tablet Orally Once a day; Duration: 90 days Active Librax 5-2.5 MG 1 capsule orally fou r times a day; Duration: 90 days Active Levothyroxine Sodium 25 MCG 1 tablet ora lly once a day; Duration: 90 days Active Loratadine 10 MG 1 tab(s) orally once a day 10/30/2019 Active Fluticasone Propionate 50 MCG/ACT 1 spray(s) intranasally once a day 03/03/2019 Active [facility] - as directed Orally Active Metoprolol Succinate ER 25 MG TAKE 1 TABLET BY MOUTH EVERY DAY FOR 30 DAYS; Duration: 90 Active Raloxifene HCl 60 MG TAKE 1 TABLET BY [place] [facility] EVERY DAY FOR 30 DAYS; Duration: 90 Active metOLazone 5 MG 1 tablet Orally christos y; Duration: 90 days Active Triamterene-HCTZ 37.5-25 MG TAKE 1 TABLE T BY MOUTH EVERY DAY FOR 30 DAYS; Duration: 90 Active Ramipril 10 MG TAKE 1 CAPSULE BY MO [facility] EVERY DAY; Duration: 90 Active Immunizations Vaccine Route Administration Date Status Comme nts COVID 19 Moderna Unknown 10/12/2020 Administered COVID 19 Moderna Unknown 11/09/2020 Administered COVID 19 Moderna Unknown 05/20/2021 Administered Tetanus Tdap-Adacel (over 7yrs) IM Intramuscular 03/19/2007 Administered Problems Problem Type SNOMED Code ICD Code Onset Dates Problem Status W/U Status Risk Notes Problem Degeneration of cervical intervertebral disc (42861151) CERVICAL DISC DEGEN (722.4) Active confirmed Problem Type 2 diabetes mellitus (24498945) Type 2 diabetes mellitus (E11.9) Active confirmed Problem Hypothyroid (03781929) Hypothyroid (E03.9) Active confirmed Problem Vitamin D deficiency (61464953) Vitamin D deficiency (E55.9) Active confirmed Problem Gout (54435892) Gout (M10.9) Active confirmed Problem Essential hypertension (47256194) Essential hypertension (I10) Active confirmed Problem Diverticulitis (55948835) Diverticulitis (K57.92) Active confirmed Problem Seasonal allergy (566698718) Seasonal allergies (J30.2) Active confirmed Problem Cervicalgia (82004685) Cervicalgia (M54.2) Active confirmed Problem Peripheral neuropathy (542807484) Peripheral neuropathy (G62.9) Active confirmed Problem Chronic pain syndrome (102586638) Chronic pain syndrome (G89.4) Active confirmed Problem Depression (716254142) Depression (F32.9) Active confirmed Problem Gastroesophageal reflux disease (055941650) Gastroesophageal reflux disease, esophagitis presence not specified (K21.9) Active confirmed Problem Aortic valve disorder (2674075) Heart murmur, aortic (I35.9) Active confirmed Problem Osteoarthritis of knee (261793936) Primary osteoarthritis of right knee (M17.11) Active confirmed Problem Podagra (62793514) Podagra (M10.9) Active confi rmed Problem Dyslipidemia (632614536) Dyslipidemia (E78.5) Active confirmed Problem Obese class II (753597750351389) BMI 39.0-39.9,adult (Z68.39) Active confirmed Problem Allergic rhinitis (61113346) Allergic rhinitis, unspecified allergic rhinitis trigger, unspecified rhinitis seasonality (J30.9) Active confirmed Problem Atopic dermatitis (20151511) Intrinsic eczema (L20.84) Active confirmed Problem Irritable bowel syndrome (65820280) Irritable bowel syndrome, unspecified type (K58.9) Active confirmed Problem Osteopenia (754637560) Osteopenia, unspecified location (M85.80) Active confirmed Problem Allergic rhinitis (70758823) Allergic rhinitis, unspecified seasonality, unspecified trigger (J30.9) Active confirmed Problem Diabetic peripheral neuropathy associated with type 2 diabetes mellitus (4449895098632) Type 2 diabetes mellitus with diabetic neuropathy, unspecified whether care home insulin use (E11.40) Active confirmed Vital Signs Heart Rate 85 /min 01/20/2025 Blood pressure diastolic 82 mm Hg 01/20/2025 Height 63 in 01/20/2025 Blood pressure systolic 124 mm Hg 01/20/2025 Weight 227.8 lbs 01/20/2025 BMI 40.35 kg/m2 01/20/2025 Encounters Encounter Location Date Provider Diagnosis [facility] [address] [facility] [address] [place] [id number] 02/28/2024 R Nigel Chapin Diverticulitis K57.9 2 ; Rectal bleeding K62.5 and Seasonal allergies J30.2 [facility] [address] [facility] [address] [place], [place] [id number] 11/06/2024 R Nigel Chapin Heart murmur, aortic I35.9 ; Hypothyroid E03.9 ; Hyperuricemia E79.0 ; Type 2 diabetes mellitus E11.9 ; Xerosis cutis L85.3 ; Dyslipidemia E78.5 and BMI 39.0-39.9,adult Z68.39 [facility] [address] [place] [facility] [address] [place], [place] [id number] 12/23/2024 R Nigel Chapin Leg edema R60.0 ; Xerosis cutis L85.3 and Foot pain M79.673 [facility] [address] [place], [place] [id number] 01/20/2025 R Nigel Chapin Type 2 diabetes krystal itus with diabetic neuropathy, unspecified whether medical terminologist insulin use E11.40 and Leg edema R60.0 [facility] [address] [place], [place] [id number] 04/29/2024 Ginny Forrest [facility] [address] [place], [place] [id number] 11/05/2024 Kingsley Chapin [facility] [address] [place], [place] [id number] 11/13/2024 Ginny Forrest [facility] [address] [place], [place] [id number] 11/25/2024 Ginny Forrest [facility] [address] [place], [place] [id number] 11/30/2024 Kingsley Chapin [facility] [address] [place], [place] [id number] 01/12/2025 Ginny Forrest Encounter for screen ing [...] (ICD-10 - L85.3) Moisturizing lotions to feet 01/12/2025 Encounter for screening for osteoporosis (ICD-10 - Z13.820) 01/20/2025 Leg edema (ICD-10 - R60.0) 01/20/2025 Type 2 diabetes mellitus with diabetic neuropathy, unspecified whether medical terminologist insulin use (ICD-10 - E11.40) 12/23/2024 Foot pain (ICD-10 - M79.673) - - probably component of plantar fasciitis Keep appointment with podiatry in 2 weeks 11/06/2024 Hyperuricemia (ICD-10 - E79.0) 02/28/2024 Seasonal allergies (ICD-10 - J30.2) Resume Claritin and Flonase she has at home 11/06/2024 Type 2 diabetes mellitus (ICD-10 - E11.9) 11/06/2024 Xerosis cutis (ICD-10 - L85.3) Moisturizing lotions to feet 11/06/2024 Dyslipidemia (ICD-10 - E78.5) 11/06/2024 BMI 39.0-39.9,adult (ICD-10 - Z68.39) Plan Of Treatment Pending Test Test Name Order Date Bone density 01/27/2025 Insurance Providers Payer Name Payer Address Payer Phone Subscriber Number Group Number Insured Name Patient Relationship to Insured Coverage Start Date Coverage End Date MEDICARE PART B [address] [address] [place] [id number] [phone] [id number] KELLY PLASCENCIA Self - patient is the insured [address] [id number] [place] HURST Spouse - patient [...] Hospitalization History Reason Date(Month/Year) SAME ABOVE PNEUMONIA 2001
--- NOTE | 2025-02-23 14:11 | XR_ITS ---
FINAL REPORT TECHNIQUE: Bone densitometry calculations of the lumbar spine and bilateral hips were obtained. CLINICAL HISTORY: SCREENING COMPARISON: None FINDINGS: Using L1-4, the bone mineral density of the spine is 1.415 g/cm2, corresponding to T-score of 3.3 and a Z score of 5.8. This is within the range of normal. Using the left hip, the bone mineral density of the femoral neck is 0.780 g/cm2, corresponding to a T-score of -0.6 and a Z-score of 1.5. This is within the range of normal. Using the right hip, the bone mineral density of the femoral neck is 0.748 g/cm?, corresponding to a T-score of -0.9 and a Z-score of 1.2. This is within the range of normal. NOTE: T-score: Standard deviation compared with peak bone mass of young adult mean. *Following the recommendations of the International Society of Bone densitometry, classification of hip BMD is based on the lower of two T-scores; total hip or femoral neck. IMPRESSION: 1. Bone mineral density of the lumbar spine within the range of normal. 2. Bone mineral density of the bilateral femoral necks within the range of normal. Reviewed, Interpreted and Dictated by Paz Villagomez MD Transcribed by Kasandra Major Authenticated and [facility]
== END 2025-02-23 23:59 | disposition home or self-care (01) ==
LOC: RAD 13:39
PROVIDERS: PCP Family Medicine; Visit Provider Family Medicine
DX: M81.0 Age-related osteoporosis without current pathological fracture (principal); Z78.0 Asymptomatic menopausal state
CPT/HCPCS: 77080

== ENCOUNTER 2025-03-16 13:00 | Outpatient (RCR) | payer MEDICARE, OTHER, SELFPAY ==
--- NOTE | 2025-02-25 16:38 | HMH.RHREAS ---
Rehab Reassessment Rehab OP Re-assessment Start: 02/18/25 15:57 Freq: Status: Active Protocol: Document 02/25/25 16:25 PHOKIMBERLEY (Rec: 02/25/25 16:37 PHORDORINDA [id number]) E-signed By Asher Aviles, PT Rehab Re-assessment Subjective Subjective Pt reports she has less pain overall and feels her legs are a little bit better with pain, but is unsure if she has lost any swelling. She reports she continues to have difficulty donning her compression garments and wearing for long periods of time. Objective Objective Notes Circumferential measurements: R LE total is 180.6 cm which is -1.4 cm since IE. L LE total is 184.9 cm which is -1.2 cm since IE. Pain: B lower legs 3/10 at worst. TTP: 1/4 B lower legs Edema: 2+ pitting edema in B foot and lower legs. LLIS score: 52 Assessment Progress Assessment Slower Than Expected Assessment Notes Pt has shown only mild reduction in overall B LE edema based on circumferential measurements. She has shown reduction in overall pain. She continues to need skilled therapy services in order to reduce edema and decrease pain in order to aid improvement in QOL. Lymphedema Patient Goals Lymphedema Short In 2 wks Pt will: Term Patient Goals 1) Reduce pitting edema to 1+ in R LE 2) Reduce circumferential measurements to B LE by 5 cm ea Lymphedema Fpc In 4 wks Pt will: Patient Goals 1) Reduce pitting edema to none in R LE 2) Reduce circumferential measurements to B LE by 15 cm ea 3) decrease pain in B feet to 2/10 or less 4) be independent with donning/doffing of compression garments. Plan Plan Continued pt treatment may include any or all of the following interventions in order to improve functional outcomes and aid pt improvement in QOL: Frequency of Therapy 2 x/wk Duration of Therapy 4 wks Therapeutic Exercise Yes Including Home Exercise Program Manual Therapy Yes Techniques Neuromuscular Re- Yes education Therapeutic Yes Activities to Return to Previous Functional/Work Level ADL/Self Care Yes Education Orthotics/Bracing/ Yes Splinting Vasopneumatic Yes Compression Pump Manual Lymphatic Yes Drainage Eval/Re-Eval Yes Time and Billing Re-Eval Time 16 Re-Eval Billing 0 Units Charge for PT No reassessment? PHYSICIAN CERTIFICATION: I certify the specified therapy services for Natalya Maki Pickard Bell are required, authorized, and reviewed every 30 days.
== END 2025-03-16 23:59 | disposition home or self-care (01) ==
LOC: PT 13:00
PROVIDERS: PCP Family Medicine; Visit Provider Podiatrist
DX: I89.0 Lymphedema, not elsewhere classified (principal)
CPT/HCPCS: 97140

== ENCOUNTER 2025-04-16 16:00 | Outpatient (RCR) | payer MEDICARE, OTHER, SELFPAY ==
--- NOTE | 2025-03-27 17:07 | HMH.RHREAS ---
Rehab Reassessment Rehab OP Re-assessment Start: 03/24/25 16:47 Freq: Status: Active Protocol: Document 03/27/25 16:52 PHOKingsleyDORINDA (Rec: 03/27/25 17:07 PHORNE [id number]) E-signed By Asher Aviles, PT Rehab Re-assessment Subjective Subjective Pt reports she continues to have less pain in her legs overall and they don't feel as heavy, but she doesn;t feel they have changed much in size. She reports her compression garments make my legs go numb. Objective Objective Notes Circumferential measurements: R LE total is 180.8 cm which is -1.2 cm since IE. L LE total is 185.6 cm which is -0.5 cm since IE. Pain: B lower legs 2/10 at worst. TTP: 1/4 B lower legs Edema: 2+ pitting edema in B feet only, 1+ pitting to B lower legs LLIS score: 51 Assessment Progress Assessment Slower Than Expected Assessment Notes Pt has still with only mild reduction in overall B LE edema based on circumferential measurements. She has continued to show reduction in overall pain. She continues to need skilled therapy services in order to reduce edema and decrease pain in order to aid improvement in QOL. Lymphedema Patient Goals Lymphedema Short In 2 wks Pt will: Term Patient Goals 1) Reduce pitting edema to 1+ in R LE, especially foot. 2) Reduce circumferential measurements to B LE by 5 cm ea Lymphedema Intermediate In 4 wks Pt will: Patient Goals 1) Reduce pitting edema to none in R LE 2) Reduce circumferential measurements to B LE by 15 cm ea 3) decrease pain in B feet to 2/10 or less 4) be independent with donning/doffing of compression garments. Plan Plan Updated POC sent to provider for their continued input and approval. Continued pt treatment may include any or all of the following interventions in order to improve functional outcomes and aid pt improvement in QOL Frequency of Therapy 2 x/wk Duration of Therapy 4 wks Therapeutic Exercise Yes Including Home Exercise Program Manual Therapy Yes Techniques Neuromuscular Re- Yes education Therapeutic Yes Activities to Return to Previous Functional/Work Level ADL/Self Care Yes Education Vasopneumatic Yes Compression Pump Manual Lymphatic Yes Drainage Eval/Re-Eval Yes Time and Billing Re-Eval Time 14 Re-Eval Billing 0 Units Charge for PT No reassessment? PHYSICIAN CERTIFICATION: I certify the specified therapy services for Natalya Bell are required, authorized, and reviewed every 30 days.
== END 2025-04-16 23:59 | disposition home or self-care (01) ==
LOC: PT 16:00
PROVIDERS: PCP Family Medicine; Visit Provider Podiatrist
DX: I89.0 Lymphedema, not elsewhere classified (principal)
CPT/HCPCS: 97140

== ENCOUNTER 2025-05-12 16:00 | Outpatient (RCR) | payer MEDICARE, OTHER, SELFPAY ==
--- NOTE | 2025-04-29 16:00 | HMH.RHREAS ---
Rehab Reassessment Rehab OP Re-assessment Start: 04/21/25 16:57 Freq: Status: Active Protocol: Document 04/29/25 15:48 PHOKingsleyDORINDA (Rec: 04/29/25 15:59 PHORNE [id number]) E-signed By Asher Aviles, PT Rehab Re-assessment Subjective Subjective Pt reports no c/o pain in B LE this date and no c/o tenderness to touch. She does report B LE feel heavier at this time than they have previously and she continues to have difficulty donning shoes due to foot edema. Objective Objective Notes Circumferential measurements: R LE total is 181.28 cm which is -0.8 cm since IE. L LE total is 185.9 cm which is -0.2 cm since IE. Pain: B lower legs 1/10 at worst. TTP: 0/4 B lower legs Edema: 2+ pitting edema in B feet only, 1+ pitting to B lower legs LLIS score: 51 Assessment Progress Assessment Slower Than Expected Assessment Notes Pt has been present for 7 treatment visits since her last reassessment was performed. Pt again presents with only mild reduction in overall B LE edema based on circumferential measurements. She has continued to show reduction in overall pain. She continues to need skilled therapy services in order to reduce edema and decrease pain in order to aid improvement in QOL. Pt continues to have persistent lymphedema despite conservative treatment consisting of greater than 4 weeks of consistent elevation of B LE, compression garment wear throughout the day, and therapeutic exercise to improve fluid mobilization. Skin changes including increased redness and increased dryness of the skin remain evident and increased fibrotic edema is present. Lymphedema Patient Goals Lymphedema Short In 2 wks Pt will: Term Patient Goals 1) Reduce pitting edema to 1+ in R LE, especially foot. 2) Reduce circumferential measurements to B LE by 5 cm ea Lymphedema Alf In 4 wks Pt will: Patient Goals 1) Reduce pitting edema to none in R LE 2) Reduce circumferential measurements to B LE by 15 cm ea 3) decrease pain in B feet to 2/10 or less (MET) 4) be independent with donning/doffing of compression garments. Plan Plan Updated POC sent to provider for their continued input and approval. Continued pt treatment may include any or all of the following interventions in order to improve functional outcomes and aid pt improvement in QOL: Frequency of Therapy 1 x/wk Duration of Therapy 4 wks Therapeutic Exercise Yes Including Home Exercise Program Manual Therapy Yes Techniques Neuromuscular Re- Yes education Therapeutic Yes Activities to Return to Previous Functional/Work Level ADL/Self Care Yes Education Manual Lymphatic Yes Drainage Eval/Re-Eval Yes Time and Billing Re-Eval Time 17 Re-Eval Billing 0 Units Charge for PT No reassessment? PHYSICIAN CERTIFICATION: I certify the specified therapy services for Natalya Bell are required, authorized, and reviewed every 30 days.
== END 2025-05-12 23:59 | disposition home or self-care (01) ==
LOC: PT 16:00
PROVIDERS: PCP Family Medicine; Visit Provider Podiatrist
DX: I89.0 Lymphedema, not elsewhere classified (principal)
CPT/HCPCS: 97140

== ENCOUNTER 2025-06-17 16:00 | Outpatient (RCR) | payer MEDICARE, OTHER, SELFPAY ==
--- NOTE | 2025-05-29 16:09 | [facility].RHREAS ---
Rehab Reassessment Rehab OP Re-assessment Start: 05/22/25 16:41 Freq: Status: Active Protocol: Document 05/29/25 16:00 [email or web address] (Rec: 05/29/25 16:08 PHORNE [id number]) E-signed By Asher Aviles, PT Rehab Re-assessment Subjective Subjective Pt reports no c/o pain at this time and no c/o tenderness to palpation currently. She states, They do hurt sometimes and they can be tender, but not right now. She continues to have difficulty with donning shoes due to increased edema in B foot and ankle areas. Objective Objective Notes Circumferential measurements: R LE total is 180.3 cm which is -1.7 cm since IE. L LE total is 184.2 cm which is -1.9 cm since IE. Pain: B lower legs 1/10 at worst. TTP: 0/4 B lower legs Edema: 2+ pitting edema in B feet only, 1+ pitting to B lower legs LLIS score: 51 Assessment Progress Assessment Progressing as Expected Assessment Notes Pt has been present for 6 treatment visits since her last reassessment was performed. Pt again presents with only mild reduction in overall B LE edema based on circumferential measurements, but reduction is steady this date. She has continued to show reduction in overall pain. She continues to need skilled therapy services in order to reduce edema and decrease pain in order to aid improvement in QOL. Pt continues to have persistent lymphedema despite conservative treatment consisting of greater than 4 weeks of consistent elevation of B LE, compression garment wear throughout the day, and therapeutic exercise to improve fluid mobilization. Skin changes including increased redness and increased dryness of the skin remain evident and increased fibrotic edema is present. Lymphedema Patient Goals Lymphedema Short In 2 wks Pt will: Term Patient Goals 1) Reduce pitting edema to 1+ in R LE, especially foot. 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 Plan Plan Updated POC sent to provider for their continued input and approval. Continued pt treatment may include any or all of the following interventions in order to improve functional outcomes and aid pt improvement in QOL: Frequency of Therapy 1 x/wk Duration of Therapy 4 wks Therapeutic Exercise Yes Including Home Exercise Program Manual Therapy Yes Techniques Neuromuscular Re- Yes education Therapeutic Yes Activities to Return to Previous Functional/Work Level ADL/Self Care Yes Education Manual Lymphatic Yes Drainage Eval/Re-Eval Yes Time and Billing Re-Eval Time 17 Re-Eval Billing 0 Units Charge for PT No reassessment? PHYSICIAN CERTIFICATION: I certify the specified therapy services for Natalya Bell are required, authorized, and reviewed every 30 days.
== END 2025-06-17 23:59 | disposition home or self-care (01) ==
LOC: PT 16:00
PROVIDERS: PCP Family Medicine; Visit Provider Podiatrist
DX: I89.0 Lymphedema, not elsewhere classified (principal)
CPT/HCPCS: 97140